=== PATIENT | male | born 1945 | race Caucasian/White ===

== ENCOUNTER → 2017-07-31 10:45 | Outpatient (CLI) | payer MEDICARE, SELFPAY ==
--- NOTE | 2017-07-31 11:00 | RAD_ITS ---
STUDY: X-RAY - ABDOMEN/PELVIS REASON FOR EXAM: Male, 72 years old. Constipation. TECHNIQUE: AP supine and upright views of the abdomen and pelvis. COMPARISON: None. FINDINGS: Normal visualized lung bases. There is a nonspecific bowel gas pattern. There are multiple mildly distended loops of small bowel left upper quadrant. Air and feces is seen throughout the colon. There is no demonstrated free abdominal air. The visualized liver, spleen and kidneys are grossly normal in size and morphology. There are calcified phleboliths in the pelvis. There are diffuse degenerative changes of the visualized lumbar spine. RAD/Abd Inc Decub and/or Erect IMPRESSION: Localized left upper quadrant ileus versus early or incomplete small bowel obstruction. Electronically Signed: Avi Mitchell DO at 12:30 EDT Tel [phone], Service support ,
== END ==
PROVIDERS: Family Provider Family Medicine Geriatric Medicine; PCP Family Medicine Geriatric Medicine; Visit Provider Family Medicine Geriatric Medicine
DX: K59.00 Constipation, unspecified (principal)
CPT/HCPCS: 74019

== ENCOUNTER 2017-09-13 17:50 | Observation (INO) | payer MEDICARE, SELFPAY ==
[2017-09-13] VITALS (7 sets, daily range): BP systolic 146–166; BP diastolic 70–96; PULSE 54–72; RESP 16–20; TEMP 36.5–37.2; O2SAT 97–100; BMI 22.5; BMI 22.1
--- NOTE | 2017-09-13 17:48 | EKG12_ITS ---
Test Reason : CP Blood Pressure : / mmHG Vent. Rate : 055 BPM Atrial Rate : 055 BPM P-R Int : 148 ms QRS Dur : 100 ms QT Int : 420 ms P-R-T Axes : 038 050 117 degrees QTc Int : 401 ms Sinus bradycardia Left ventricular hypertrophy with repolarization abnormality Abnormal ECG Confirmed by TATE BECK, MILA ([id number]), newspaper copy editor REINALDO SHEEHAN ([id number]) on 09/16/2017 3:56:57 PM Referred By: Confirmed By:MILA YBARRA MD
--- NOTE | 2017-09-13 17:50 | RAD_ITS ---
STUDY: X-RAY CHEST REASON FOR EXAM: Male, 72 years old. Chest pain TECHNIQUE: Frontal and lateral views of the chest COMPARISON: None. FINDINGS: The lungs are clear. There are no pleural effusions. There is no pneumothorax. The heart is normal in size. The visualized osseous structures are within normal limits. RAD/Chest PA and Lateral IMPRESSION: No acute thoracic pathology. Electronically Signed: Ron Londono, at 19:05 EDT Tel , Service support ,
--- NOTE | 2017-09-13 17:50 | ED.VISSUMM ---
- ER Visit Summary Date of Service: 09/13/17 Chief Complaint: [] Chest pain History of Present Illness: The patient is a 72 M [] chest pain that started an hour ago after eating. Lasted 15 minutes substernal no radiation was a sharp pain. It went away after that time. EMS gave aspirin only. He was pain-free for them. He is supposed to have a stress test this Thursday as an outpatient as he had chest pain similar a week ago. His last stress test was 2 years ago per patient was normal. He has never had a heart cath. His only cardiac risk factors high cholesterol. No PE or dissection risk factors. Physical Examination: [] Vital signs reviewed General: Well-nourished well-developed Head: Normocephalic atraumatic Eyes: Pupils equal round and reactive to light extraocular movements intact ENT: TMs clear no hemotympanum no trauma Neck: Nontender full range of motion Cardiovascular: Regular rate rhythm no murmurs normal S1-S2 Respiratory: No distress clear to auscultation bilaterally chest nontender Abdomen: Soft nontender nondistended normal bowel sounds no masses Back: Nontender no CVA tenderness Extremities: Nontender active range of motion ?4 extremities no trauma Skin: Normal color no trauma Neuro alert oriented cranial nerves II through XII intact normal strength sensation reflexes Test Results: [] Emergency Department Course and Treatment: [] EKG shows sinus rhythm at 55. ST segment elevation consistent with suspected early repolarization inferiorly 3. ST depression mild 1 and aVL. T-wave inversion 1 and aVL. Biphasic T waves in V4 through V6. These are changed from prior. Lab work and chest x-ray obtained. X-ray shows chronic changes nothing acute. CBC is normal. Chemistries normal except BUN 20. Troponin negative less than 0.01. Patient remained pain-free here. Due to his EKG changes I feel he should be admitted. Discussed with the hospitalist. Treatment Plan: [] Disposition: [] Impression: [] Chest pain with EKG changes This note was generated with [employer] dictation software. It may contain incorrect words, spelling, and punctuation that were not noted in review of the chart prior to signing ED Disposition - Plan for ED Patient: Chief Complaint: Chest Pain Referrals: Som Reyes Chi, MD [Primary Care Provider] -
[2017-09-13 18:19] LABS: Absolute Lymphocyte Count 2.11 X10^3/ul (0.83-4.51); Absolute Neutrophil Count 1.9 X10^3/uL (2.0-7.7); Basophil# 0.04 X10^3/uL; Basophil% 0.7 % (0-1); Eosinophil# 0.68 X10^3/uL; Eosinophils% 12.7 % (0-5); Hematocrit 37.6 % (40-54); Hemoglobin 13.3 g/dl (13.0-16.5); Lymphocyte # 2.11 X10^3/ul (4.0); Lymphocyte % 39.4 % (19-41); Mean Corp Hgb Conc 35.4 g/gl (32-36); Mean Corpuscular Hgb 31.9 pg (27.0-32.0); Mean Corpuscular Volume 90.2 fL (80-94); Mean Platelet Vol. 10.8 fl (6.2-12.0); Monocyte# 0.65 X10^3/uL; Monocyte% 12.1 % (0-10); Neutrophil # 1.87 X10^3/uL (2.7-7.7); Neutrophil % 35.1 % (47-70); Platelet Count 200 K/mm3 (150-450); RBC Distribution Width CV 12.3 % (11.6-14.6); RBC Distribution Width SD 39.8 fl (35.1-43.9); Red Blood Count 4.17 M/mm3 (4.6-6.2); White Blood Count 5.4 K/mm3 (4.4-11.0)
[2017-09-13 18:22] LABS: POSITIVE COUNT NO; POSITIVE DIFFERENTIAL NO; POSITIVE MORPHOLOGY NO
[2017-09-13 18:47] LABS: Anion Gap 7 (5-15); BUN 20 mg/dL (7-18); BUN/Creat Ratio 20.2 RATIO (10-20); Calcium,Total 8.5 mg/dL (8.5-10.1); Chloride 105 mmol/L (98-107); Creatinine, Serum 0.99 mg/dL (0.70-1.30); EST Glomerular Filtration Rate 79 mL/min (>60); Est Glom Filt Rate - Afr Amer 96 mL/min (>60); Estimated Creatinine Clearance 69.94 ml/min; Glucose 98 mg/dL (74-106); Sodium Level 136 mmol/L (136-145)
--- NOTE | 2017-09-13 20:25 | EKG12_ITS ---
Test Reason : ADM EKG Blood Pressure : / mmHG Vent. Rate : 055 BPM Atrial Rate : 055 BPM P-R Int : 144 ms QRS Dur : 104 ms QT Int : 430 ms P-R-T Axes : 046 055 125 degrees QTc Int : 411 ms Sinus bradycardia Left ventricular hypertrophy with repolarization abnormality Abnormal ECG When compared with ECG of 10-FEB-2010 13:52, Vent. rate has decreased BY [address] now depressed in Lateral leads T wave inversion no longer evident in Inferior leads T wave inversion now evident in Lateral leads QT has shortened Confirmed by TATE BECK, MILA ([id number]), editorial specialist REINALDO SHEEHAN ([id number]) on 09/17/2017 10:17:03 AM Referred By: DALE Confirmed By:MILA YBARRA MD
--- NOTE | 2017-09-13 21:02 | PCM.HP.STD ---
Problem List (1) Chest pain Status: Acute (2) Lipidemia Status: Acute (3) HTN (hypertension) Status: Chronic History of Present Illness Date of Admission: 09/13/17 Chief Complaint: Chest pain The patient is a 72 year old male w/ h/o HTN and lipidemia admitted for chest pain. Pt noted that he has epigastric pain an hour after eating. However, the pain moved to this substernal area. It lasted 15 minutes. Nothing made the pain better or worse. Pain lasted 15-20 minutes. Pain was sharp and sudden. Pain was not associated with exertion or any other symptoms. He was supposed to have a stress test this Thursday. He had a stress test 2 years ago and it was normal. Past Medical History Past Medical History (Chronic Problems): Chronic Problems HTN (hypertension) (Chronic) Allergies Penicillins [PCN] Allergy (Verified 01/15/16 08:05) Other Sulfa (Sulfonamide Antibiotics) Allergy (Verified 01/15/16 08:05) Other Home Medications: Ambulatory Orders Medication Instructions Recorded Divalproex Sodium [Divalproex 1,000 mg PO DAILY 01/15/16 Sodium ER] Ergocalciferol [Vitamin D] 50,000 unit PO Q7D 01/15/16 Fluphenazine HCl [Prolixin] 5 mg PO BID 01/15/16 Lorazepam [Ativan] 0.5 mg PO DAILY 01/15/16 Multivit-Min/FA/Lycopen/Lutein 1 each PO DAILY 01/15/16 [Centrum Silver Tablet] Phenytoin Sodium Extended 200 mg PO QHS 01/15/16 [Dilantin] Sennosides/Docusate Sodium 100 mg PO DAILY 01/15/16 [Doc-Q-Lax Tablet] Simvastatin [Zocor] 40 mg PO QHS 01/15/16 Calcium Polycarbophil [Fiber 625 mg PO BID 09/13/17 Laxative] DiphenhydrAMINE [Benadryl] 25 mg PO BID 09/13/17 Surgical History: no surgical history Psychiatric History: No pertinent psych hx Lives: Alone Smoking Status: Never smoker Alcohol: None Drugs: None - *Family History Maternal History Items: No pertinent history Review of Systems Constitutional: Denies: Chills, Fever, Weight Change HEENT: Denies: Head Aches, Sinus Congestion, Sinus Drainage Cardiovascular: Reports: Chest Pain. Denies: Palpitations Respiratory: Denies: Cough, Shortness of breath at rest, Sputum production Gastrointestinal: Denies: Abdominal Pain, Nausea, Vomiting Genitourinary: Denies: Dysuria Musculoskeletal: Denies: Joint Pain, Joint Tenderness Skin: Denies: Rash, Wounds Neurological: Denies: Numbness, Tingling, Focal weakness Psychiatric: Denies: Anxiety, Depression, Homicidal Ideations, Suicidal Ideations Hematologic/ Lymphatic: Denies: Easy Bruising, Easy Bleeding VTE Information - Inpt Only VTE Present on Admission: No VTE Mechan Device Prophylaxis: SCD's VTE Pharm Prophylaxis ordered?: Yes Patient Problems: Active and Suspected Problems Chest pain (Acute) Lipidemia (Acute) - Physical Exam General: Alert, Oriented x3, Cooperative HEENT: Atraumatic, PERRLA, EOMI, Normocephalic Neck: Supple, No JVD, Negative Carotid Bruits Lungs: Clear to auscultation, Normal air movement Cardiovascular: Regular rate, No murmurs Abdomen: Bowel Sounds Present, Soft, Non Tender Extremities: No edema, Capillary Refill Less than 3 Seconds Skin: No rashes, No breakdown Musculoskeletal: No Tenderness to Palpation of Joints or Extremities Neurological: Cranial nerves II-XII grossly intact Psych/Mental Status: Normal Affect, Appropriate Vital Signs Temp Pulse Resp BP Pulse Ox 99 F 64 19 H 166/88 H 97 09/13/17 19:36 09/13/17 19:36 09/13/17 19:36 09/13/17 19:36 09/13/17 18:22 Assessment/Plan All Active Problems Chest pain (Acute) Lipidemia (Acute) 72 year old male w/ h/o HTN and lipidemia admitted for chest pain. 1) Chest pain: Heart score 4 Trops negative. Will get ECHO and stress test. C/w meds. Monitor. 2) Lipidemia: C/w statin. Lipid panel pending. 3) HTN: Resume home meds. Monitor. 4) Prophylaxis: SCD / heparin.
[2017-09-13] MEDS: Carvedilol 3.125 MG TABLET PO (23:02)
[2017-09-13] MEDS: Phenytoin Na 100 MG Capsule 200 MG PO (23:02)
[2017-09-13] MEDS: Atorvastatin Calcium 20 MG Tablet PO (23:02)
[2017-09-13] MEDS: Heparin Injection (Vial) 5,000 UNIT/ML VIAL 5000 UNIT SC (23:02)
[2017-09-13] MEDS: DiphenhydrAMINE 25 MG Capsule PO (23:02)
[2017-09-14 02:53] VITALS: PULSE 49
[2017-09-14 03:15] VITALS: BP 138/65; PULSE 49; RESP 16; TEMP 36.9; O2SAT 96
--- NOTE | 2017-09-14 05:55 | EKG12_ITS ---
Test Reason : AM EKG Blood Pressure : / mmHG Vent. Rate : 050 BPM Atrial Rate : 050 BPM P-R Int : 146 ms QRS Dur : 102 ms QT Int : 460 ms P-R-T Axes : 043 046 129 degrees QTc Int : 419 ms Sinus bradycardia Left ventricular hypertrophy with repolarization abnormality Abnormal ECG When compared with ECG of 13-SEP-2017 20:29, MANUAL COMPARISON REQUIRED, DATA IS UNCONFIRMED Confirmed by TATE BECK, MILA ([id number]), editor greeting card REINALDO SHEEHAN ([id number]) on 09/17/2017 10:15:47 AM Referred By: DR HUNTER Confirmed By:MILA YBARRA MD
[2017-09-14] MEDS: Lisinopril 5 MG Tablet PO (06:37)
[2017-09-14] MEDS: Aspirin E.C. 81 MG Tablet PO (06:37)
[2017-09-14 06:46] LABS: Absolute Lymphocyte Count 1.14 X10^3/ul (0.83-4.51); Absolute Neutrophil Count 2.4 X10^3/uL (2.0-7.7); Basophil# 0.02 X10^3/uL; Basophil% 0.4 % (0-1); Eosinophil# 0.52 X10^3/uL; Eosinophils% 11.5 % (0-5); Hematocrit 38.3 % (40-54); Hemoglobin 13.2 g/dl (13.0-16.5); Lymphocyte # 1.14 X10^3/ul (4.0); Lymphocyte % 25.2 % (19-41); Mean Corp Hgb Conc 34.5 g/gl (32-36); Mean Corpuscular Volume 89.9 fL (80-94); Mean Platelet Vol. 10.5 fl (6.2-12.0); Monocyte# 0.46 X10^3/uL; Monocyte% 10.2 % (0-10); Neutrophil # 2.38 X10^3/uL (2.7-7.7); Neutrophil % 52.7 % (47-70); Platelet Count 193 K/mm3 (150-450); RBC Distribution Width CV 12.8 % (11.6-14.6); RBC Distribution Width SD 41.6 fl (35.1-43.9); Red Blood Count 4.26 M/mm3 (4.6-6.2); White Blood Count 4.5 K/mm3 (4.4-11.0)
[2017-09-14 06:47] LABS: International Normalized Ratio 1.1; Prothrombin Time (Protime)PT. 14.2 SECONDS (11.7-14.9)
[2017-09-14 06:48] LABS: Partial Thromboplast Time 32.6 Seconds (24.1-36.2)
[2017-09-14 06:59] LABS: D-Dimer Quantitative (DVT/PE) < 0.27 FEU/ug/m (0.27-0.49); POSITIVE COUNT NO; POSITIVE DIFFERENTIAL NO; POSITIVE MORPHOLOGY NO
[2017-09-14 07:17] LABS: ALB/GLOB Ratio 0.9 RATIO (0.9-2.4); AST(SGOT) 19 U/L (15-37); Alanine Aminotransfer ALT/SGPT 25 U/L (16-61); Albumin, Serum 3.4 g/dL (3.2-5.0); Alkaline Phosphatase 77 U/L (45-117); Anion Gap 9 (5-15); BUN 16 mg/dL (7-18); BUN/Creat Ratio 18.9 RATIO (10-20); Calcium,Total 8.2 mg/dL (8.5-10.1); Chloride 109 mmol/L (98-107); Cholesterol 178 mg/dL (200); Creatinine, Serum 0.85 mg/dL (0.70-1.30); EST Glomerular Filtration Rate 95 mL/min (>60); Est Glom Filt Rate - Afr Amer 115 mL/min (>60); Estimated Creatinine Clearance 80.07 ml/min; Globulin 3.6 g/dL (2.2-4.2); Glucose 82 mg/dL (74-106); High Density Lipoprotein 58 mg/dL; Potassium 4.2 mmol/L (3.5-5.1); Sodium Level 141 mmol/L (136-145); Thyroid Stim Hormone (TSH) 1.54 uIU/mL (0.358-3.74); Triglycerides 63 mg/dL; Very Low Density Lipoprotein 13 mg/dL (5-40)
[2017-09-14 07:38] VITALS: PULSE 80
[2017-09-14 08:25] LABS: BNP,B-Type NATRIURETIC PEPTIDE 86.3 pg/mL (0-100)
[2017-09-14 09:05] VITALS: BP 163/77; PULSE 58; RESP 16; TEMP 36.4; O2SAT 100
[2017-09-14] MEDS: LORazepam 0.5 MG Tablet PO (09:05)
[2017-09-14 11:12] VITALS: PULSE 55
[2017-09-14] MEDS: Multivitamins,Ther W-Minerals Tablet 1 TABLET PO (11:39)
[2017-09-14] MEDS: Carvedilol 3.125 MG TABLET PO (11:39)
[2017-09-14] MEDS: DiphenhydrAMINE 25 MG Capsule PO (11:39)
[2017-09-14] MEDS: Divalproex (ER) 500 MG Tablet 1000 MG PO (11:39)
[2017-09-14] MEDS: Senna/Docusate Sodium 1 Tablet PO (11:40)
--- NOTE | 2017-09-14 13:15 | STRESSREP ---
Stress Test Report Pharmacologic myocardial perfusion stress test. 72-year-old man with a history of chest pain. Stress protocol: Resting EKG demonstrates sinus rhythm with rate of [address]-T wave changes resting blood pressure is 162/98 mmHg. 0.4 mg regadenoson was infused per usual protocol followed by Intravenous saline flush injection continuous EKG monitoring was performed. The patient maintained sinus rhythm throughout the recording. At rest there were no ST or T-wave changes noted suggest abnormal flow reserve at peak infusion nonspecific ST-T wave changes were noted with no meet the criteria for ischemia. Resting blood pressure is 162/98 with a peak blood pressure 160/100 mmHg. Myocardial perfusion protocol. 11.1 mCi of technetium 99m sestamibi was injected at rest. 0.4 mg regadenoson was infused per usual protocol peak infusion 33.6 mCi of technetium 99m sestamibi was injected stress images are obtained stress and rest images were reconstructed and compared in the short axis vertical long and horizontal long axis. Gated images were also obtained pre- Perfusion SPECT analysis. Review of the stress images demonstrate normal uptake of tracer noted in all areas of the myocardium. The resting images similarly demonstrate normal uptake of tracer noted in all areas of the myocardium. No reversibility is noted suggest ischemia. Gated images could not be obtained. Conclusion: Normal pharmacologic myocardial perfusion stress test. Preserved ejection fraction.
--- NOTE | 2017-09-14 13:58 | PCM.DC ---
- Discharge Diagnoses Current Active Problems: Current Active and Chronic Problems Chest pain, non-cardiac, unclear specific etiology Hypertension, Untreated Hyperlipidemia Unclear Psychiatric History, Suspect Anxiety and Depression/Schizophrenia You will use the following diet at home:: Cardiac Your food should be the consistency of: Regular Your liquids should be the consistency of: Regular/Thin Discharge Activity: Return to Normal Activity, May Not Drive May resume sexual activity in: No Restrictions Weight Bearing Status: Weight bearing as tolerated Call your doctor if you observe: Fever of 101 or Higher, Inability to urinate, Inability to have a bowel movement, Shortness of breath, Dizziness, Fainting spells, Chest pain, Calf discomfort, Uncontrolled pain Instructions: ED Chest Pain NonCardiac, What Is GERD?, Lifestyle Changes for Controlling GERD, Medications for GERD Additional Instructions: Please have follow-up BMP with primary care follow-up given recent start on lisinopril for elevated blood pressure. You have been started on low dose coreg and lisinopril for elevated blood pressures noted upon admission and during admission. Please continue these regimens with close blood pressure monitoring at your facility for possible alteration needs at follow-up with your primary care physician. The chest pain you experienced is not from your heart. The stress test is negative and your heart squeezed normally. The radial arm saw operator you wore showed no problem with the rhythm of your heart. Additionally, the cardiac enzyme series performed remained normal. Sometimes chest pain can come from a problem with the muscles or skeleton and/or associated with straining or doing some strenuous activity you do not normally perform. Generally Aleve or Motrin will help allieviate this discomfort if these medications are appropriate for you to take. Chest pain can also be associated with anxiety and with this you frequently have racing heart, trouble sleeping and irritability. It can also come from gastroesophageal reflux disease or heartburn. People who smoke experience increased heartburn because nicotine decreases the pressure in the lower esophageal sphincter and causes reflux. This type of discomfort is well treated with drinking a large glass of cold water which strips the acid out of the esophagus or taking Mylanta, Maalox or Pepto-Bismol. Other foods to avoid if you have reflux are chocolate, peppermint and calcium containing products such as Tums. Allergies/Adverse Reactions: Allergies Penicillins [PCN] Allergy (Verified 01/15/16 08:05) Other Sulfa (Sulfonamide Antibiotics) Allergy (Verified 01/15/16 08:05) Other Medications to take at Discharge Divalproex Sodium [Divalproex Sodium ER] 1,000 mg PO DAILY 01/15/16 Ergocalciferol [Vitamin D] 50,000 unit PO Q7D 01/15/16 Fluphenazine HCl [Prolixin] 5 mg PO BID 01/15/16 Lorazepam [Ativan] 0.5 mg PO DAILY 01/15/16 Multivit-Min/FA/Lycopen/Lutein [Centrum Silver Tablet] 1 each PO DAILY 01/15/16 Phenytoin Sodium Extended [Dilantin] 200 mg PO QHS 01/15/16 Sennosides/Docusate Sodium [Doc-Q-Lax Tablet] 100 mg PO DAILY 01/15/16 Simvastatin [Zocor] 40 mg PO QHS 01/15/16 Calcium Polycarbophil [Fiber Laxative] 625 mg PO BID 09/13/17 DiphenhydrAMINE [Benadryl] 25 mg PO BID 09/13/17 Carvedilol [Coreg (Beta Jonatan)] 3.125 mg PO BID #60 tab 09/14/17 Famotidine [Pepcid] 20 mg PO BID #60 tab 09/14/17 Lisinopril [Zestril] 5 mg PO DAILY #30 tab 09/14/17 The following prescriptions were given: Lisinopril [Zestril] 5 mg PO DAILY #30 tab Carvedilol [Coreg (Beta Jonatan)] 3.125 mg PO BID #60 tab Famotidine [Pepcid] 20 mg PO BID #60 tab Primary Care Physician: Som Reyes Chi, MD [Primary Care Provider] - Please follow up with your Primary Care Physician in: Follow-up within 3-5 days to review admission. Proposed Discharge Date: 09/14/17
--- NOTE | 2017-09-14 14:09 | DCINST_ITS ---
- Discharge Diagnoses Current Active Problems: Current Active and Chronic Problems Chest pain, non-cardiac, unclear specific etiology Hypertension, Untreated Hyperlipidemia Unclear Psychiatric History, Suspect Anxiety and Depression/Schizophrenia You will use the following diet at home:: Cardiac Your food should be the consistency of: Regular Your liquids should be the consistency of: Regular/Thin Discharge Activity: Return to Normal Activity, May Not Drive May resume sexual activity in: No Restrictions Weight Bearing Status: Weight bearing as tolerated Call your doctor if you observe: Fever of 101 or Higher, Inability to urinate, Inability to have a bowel movement, Shortness of breath, Dizziness, Fainting spells, Chest pain, Calf discomfort, Uncontrolled pain Instructions: ED Chest Pain NonCardiac, What Is GERD?, Lifestyle Changes for Controlling GERD, Medications for GERD Additional Instructions: Please have follow-up BMP with primary care follow-up given recent start on lisinopril for elevated blood pressure. You have been started on low dose coreg and lisinopril for elevated blood pressures noted upon admission and during admission. Please continue these regimens with close blood pressure monitoring at your facility for possible alteration needs at follow-up with your primary care physician. The chest pain you experienced is not from your heart. The stress test is negative and your heart squeezed normally. The desk monitor you wore showed no problem with the rhythm of your heart. Additionally, the cardiac enzyme series performed remained normal. Sometimes chest pain can come from a problem with the muscles or skeleton and/ or associated with straining or doing some strenuous activity you do not normally perform. Generally Aleve or Motrin will help allieviate this discomfort if these medications are appropriate for you to take. Chest pain can also be associated with anxiety and with this you frequently have racing heart, trouble sleeping and irritability. It can also come from gastroesophageal reflux disease or heartburn. People who smoke experience increased heartburn because nicotine decreases the pressure in the lower esophageal sphincter and causes reflux. This type of discomfort is well treated with drinking a large glass of cold water which strips the acid out of the esophagus or taking Mylanta , Maalox or Pepto-Bismol. Other foods to avoid if you have reflux are chocolate , peppermint and calcium containing products such as Tums. Allergies/Adverse Reactions: Allergies Penicillins [PCN] Allergy (Verified 01/15/16 08:05) Other Sulfa (Sulfonamide Antibiotics) Allergy (Verified 01/15/16 08:05) Other Medications to take at Discharge Divalproex Sodium [Divalproex Sodium ER] 1,000 mg PO DAILY 01/15/16 Ergocalciferol [Vitamin D] 50,000 unit PO Q7D 01/15/16 Fluphenazine HCl [Prolixin] 5 mg PO BID 01/15/16 Lorazepam [Ativan] 0.5 mg PO DAILY 01/15/16 Multivit-Min/FA/Lycopen/Lutein [Centrum Silver Tablet] 1 each PO DAILY 01/15/16 Phenytoin Sodium Extended [Dilantin] 200 mg PO QHS 01/15/16 Sennosides/Docusate Sodium [Doc-Q-Lax Tablet] 100 mg PO DAILY 01/15/16 Simvastatin [Zocor] 40 mg PO QHS 01/15/16 Calcium Polycarbophil [Fiber Laxative] 625 mg PO BID 09/13/17 DiphenhydrAMINE [Benadryl] 25 mg PO BID 09/13/17 Carvedilol [Coreg (Beta Jonatan)] 3.125 mg PO BID #60 tab 09/14/17 Famotidine [Pepcid] 20 mg PO BID #60 tab 09/14/17 Lisinopril [Zestril] 5 mg PO DAILY #30 tab 09/14/17 The following prescriptions were given: Lisinopril [Zestril] 5 mg PO DAILY #30 tab Carvedilol [Coreg (Beta Jonatan)] 3.125 mg PO BID #60 tab Famotidine [Pepcid] 20 mg PO BID #60 tab Primary Care Physician: Som Reyes Chi, MD [Primary Care Provider] - Please follow up with your Primary Care Physician in: Follow-up within 3-5 days to review admission. Proposed Discharge Date: 09/14/17
--- NOTE | 2017-09-14 14:11 | CASEMGMT ---
Addendum entered by Rosario Samuels 09/14/17 14:18: SW received a return call from Jake at [facility] and she is sending another upper caser to picker operator patient. They will be here at 330 to picker operator patient. Plan: [facility] Rosario LYLES Original Note: Patient is ready for d/c. SW called [facility] and did not get an answer. REILLY called the individual listed on his face sheet as his legal guardian. The number was for [facility] and she no longer works there. SW left a message for his upper caser, Jake Lovelace. SW also looked on the demographics sheet that [facility] sent with him and there is no on listed as a guardian. Rosario LYLES
--- NOTE | 2017-09-14 14:27 | DS.PCM_ITS ---
Discharge Date and Diagnosis - Problem List Patient Problems: Active and Suspected Problems Chest pain (Acute) Lipidemia (Acute) Date of Admission: 09/13/17 Date of Discharge: 09/14/17 - Primary Discharge Diagnosis Active and Suspected Problems Chest pain, non-cardiac, unclear specific etiology Hypertension, Untreated Hyperlipidemia GERD - Secondary Discharge Diagnosis Chronic Problems Hypertension, Untreated Hyperlipidemia Unclear Psychiatric History, Suspect Anxiety and Depression/Schizophrenia Hospital Course and Treatment Imaging Results: 09/14/17 05:55 Nuclear Stress Test - Chemical [NM] AM (NON MEDS) Operations: None Procedures: EKG, Stress test Summary of Care Provided: The patient is a 72 y/o who lives in a [facility], Poor Historian w/ PMHx: Hypertension, Hyperlipidemia, Unclear Psychiatric History, Suspect Anxiety and Depression/Schizophrenia, GERD who presents to the [facility] ED on 09/13/17 with complaint of the onset of epigastric/chest pain following oral intake ~ 1 hour prior with movement from epigastric to substernal region lasting 15-20 minutes, noted severe in nature and sharp with improvement. In the ED work-up included EKG sinus rhythm without evidence of acute ischemia, CXR without acute process, unremarkable CBC and chemistry, cardiac enzyme set x 1 normal. The patient was admitted to PCU, maintained on cardiac telemetry, serial cardiac enzymes were obtained as well as serial EKGs which remained unremarkable. Patient underwent AM stress testing which was noted to be negative for inducible ischemia. FLP was obtained during admission and not marked aside low HDL with continuation of his home statin. His BP was elevated upon presentation and during admission thus he was initiated on hypertensive regimen. [facility] with recommendation for follow-up with primary care physician within 3-5 days to review admission, review recent HTN regimen additions and have repeat BMP given lisinopril start. Requested penitentiary to continue to monitor blood pressures as further alteration per primary care physician may need to be made. DAY OF DISCHARGE PROGRESS NOTE: Subjective: Patient without acute event overnight per self and nursing report. He denies any further chest discomfort or epigastric pain discomfort. Patient denies fever, chills, nausea, emesis, abdominal pain, recurrent chest pain or dyspnea. Patient agreeable to discharge to [facility]. Patient will be discharged with follow-up with primary care physician within 3-5 days. Objective: T 97.6, HR 55, BP 163/77, RR 16, 100% on RA. Physical Examination: General: awake, alert, oriented to self, place, recent events, flat affect, poor historian for his healthcare, cooperative, seated upright in the bed, NAD. Skin: normal color, turgor, no icterus, cyanosis. HEENT: AT/NC, EOMI, PERRLA, MMM. Lungs: CTA bilaterally, moderate effort, mild decrease BL bases, no rales, ronchi or wheezing; Heart: Regular rate and rhythm; no gallop, rub audible. Abdomen: soft, NTTP, ND, normal BS. Extremities: no cyanosis, clubbing, or edema. Neurological: patient awake, alert, oriented x 3; cognitive function appears intact upon questioning,; pupils equally reactive to light and accomodation; cranial nerves II-XII grossly normal, moving all 4 extremities, strength moderately globally decreased. Psychiatric: affect appears flat, no acute evidence of depressive or anxiety feelings. Assessment and Plan: Please see hospital summary above. Discharge Activity: Return to Normal Activity, May Not Drive May resume sexual activity in: No Restrictions Weight Bearing Status: Weight bearing as tolerated Call your doctor if you observe: Fever of 101 or Higher, Inability to urinate, Inability to have a bowel movement, Shortness of breath, Dizziness, Fainting spells, Chest pain, Calf discomfort, Uncontrolled pain Home Medications: Medications to take at Discharge Divalproex Sodium [Divalproex Sodium ER] 1,000 mg PO DAILY 01/15/16 Ergocalciferol [Vitamin D] 50,000 unit PO Q7D 01/15/16 Fluphenazine HCl [Prolixin] 5 mg PO BID 01/15/16 Lorazepam [Ativan] 0.5 mg PO DAILY 01/15/16 Multivit-Min/FA/Lycopen/Lutein [Centrum Silver Tablet] 1 each PO DAILY 01/15/16 Phenytoin Sodium Extended [Dilantin] 200 mg PO QHS 01/15/16 Sennosides/Docusate Sodium [Doc-Q-Lax Tablet] 100 mg PO DAILY 01/15/16 Simvastatin [Zocor] 40 mg PO QHS 01/15/16 Calcium Polycarbophil [Fiber Laxative] 625 mg PO BID 09/13/17 DiphenhydrAMINE [Benadryl] 25 mg PO BID 09/13/17 Carvedilol [Coreg (Beta Jonatan)] 3.125 mg PO BID #60 tab 09/14/17 Famotidine [Pepcid] 20 mg PO BID #60 tab 09/14/17 Lisinopril [Zestril] 5 mg PO DAILY #30 tab 09/14/17 Following Prescrptions Were Given to Patient: Lisinopril [Zestril] 5 mg PO DAILY #30 tab Carvedilol [Coreg (Beta Jonatan)] 3.125 mg PO BID #60 tab Famotidine [Pepcid] 20 mg PO BID #60 tab Primary Care Physician: Som Reyes Chi, MD [Primary Care Provider] - Please follow up with your Primary Care Physician in: Follow-up within 3-5 days to review admission. Patient Instructions: What Is GERD?, Lifestyle Changes for Controlling GERD, Medications for GERD, ED Chest Pain NonCardiac Medical Necessity - Tobacco Use Smoking Status: Never smoker Meaningful Use Info Meaningful Use Diagnoses (Choose all that apply): None applicable Code Visit OBSV E&M: 66569 Initial observation care L3
[2017-09-14 14:33] VITALS: BP 147/57; PULSE 67; RESP 18; TEMP 36.7; O2SAT 98
== END 2017-09-14 14:12 | disposition home or self-care (01) ==
LOC: ED 18:27 → PCU 19:45
PROVIDERS: Admitting Provider Internal Medicine; Emergency Provider Emergency Medicine; Family Provider Family Medicine Geriatric Medicine; PCP Family Medicine Geriatric Medicine; Visit Provider Family Medicine
DX: R07.89 Other chest pain (principal); E78.5 Hyperlipidemia, unspecified; I10 Essential (primary) hypertension; K21.9 Gastro-esophageal reflux disease without esophagitis; R94.31 Abnormal electrocardiogram [ECG] [EKG]; Z79.899 Other long term (current) drug therapy; G40.909 Epilepsy, unspecified, not intractable, without status epilepticus
CPT/HCPCS: 36415; 71046; 78452; 80048; 80053; 80061; 83880; 84443; 84484; 85025; 85379; 85610; 85730; 93005; 93017; 96372; 97802; 99218; 99285; A9500; J7030; A4216; G0378; J2785

== ENCOUNTER → 2017-11-02 11:21 | Outpatient (CLI) | payer MEDICARE, SELFPAY ==
--- NOTE | 2017-11-02 11:26 | RAD_ITS ---
STUDY: X-RAY - ABDOMEN/PELVIS REASON FOR EXAM: Male, 72 years old. Diarrhea TECHNIQUE: AP supine and upright views of the abdomen and pelvis. COMPARISON: 07/31/2017 FINDINGS: Normal visualized lung bases. There is a nonspecific abdominal bowel gas pattern. There is no demonstrated free abdominal air. The visualized liver, spleen and kidneys are grossly normal in size and morphology. There are calcified phleboliths in the pelvis. Normal visualized osseous structures. RAD/Abd Inc Decub and/or Erect IMPRESSION: Nonspecific abdominal bowel gas pattern. Electronically Signed: Kwan Cook DO at 12:15 EDT Tel , Service support ,
== END ==
PROVIDERS: Family Provider Family Medicine Geriatric Medicine; PCP Family Medicine Geriatric Medicine; Visit Provider Family Medicine Geriatric Medicine
DX: R19.7 Diarrhea, unspecified (principal)
CPT/HCPCS: 74019; 82274; 83630; 87177; 87209; 87493; 87506

== ENCOUNTER 2017-11-26 08:53 | Day surgery (SDC) | payer MEDICARE, SELFPAY ==
[2017-11-26] VITALS (8 sets, daily range): BP systolic 76–126; BP diastolic 46–72; PULSE 46–71; RESP 16–18; TEMP 36.2–36.7; O2SAT 95–99; BMI 23.1
--- NOTE | 2017-11-26 10:00 | COLBX_PTH ---
PATIENT: CLEOPATRA SHAIKH LOC: EN U#:[id number] AGE/SX: 72/M ROOM: RE11/26/[address]: Dr. Raphael Blandon MD : 1945 BED: DIS: 11/26/2017 SPEC #: [id number] RECD: 11/26/17 10:46 STATUS: MEE LINETTE #: [id number] PAWEL: 11/26/17 10:[address]: Raphael Blandon DEPT: SURGICAL PATHOLOGY RECD BY: Guzman Sandoval ENTERED: 11/26/17 10:53 SP TYPE: COLON BX OTHR DR: Dr. Som Reyes MD Tissues: Descending colon Procedures: Surgery Specimen Level IV HEADER OPERATION: Colonoscopy (MAC) PRE-OP DIAGNOSIS: Positive fecal occult blood test TISSUE SUBMITTED: Descending colon polyp MICROSCOPIC DIAGNOSIS Descending colon polyp, biopsy: Fragments of tubular adenoma. Fecal debris. AM:lex 11/27/17 MICROSCOPIC DESCRIPTION Slides are reviewed. GROSS DESCRIPTION Received in fixative is one container labeled with the patient's name and designated descending colon polyp. The specimen consists of multiple irregular fragments of light cleary soft tissue including fecal debris that in aggregate measure 2 x 0.6 x 0.1 cm. The specimen is totally submitted in one cassette. / AM:rg 11/26/17 TC:5 CPT: 55501
--- NOTE | 2017-11-26 11:03 | PCM.OPRPT ---
Problem List (1) Positive fecal occult blood test Status: Acute Report of Operation Date of Procedure: 11/26/17 Pre-Operative Diagnosis: Positive fecal occult blood test Post-Operative Diagnosis: 1. Descending colon polyp. 2. Diverticulosis Surgery/Procedure Performed:: Colonoscopy with snare polypectomy Description of Procedure: The major risks and benefits associated with the procedure were explained to the patient in detail. The patient verbalized understanding and agreement with the same. The patient was brought to the endoscopy suite. After adequate sedation was achieved, the patient was placed in the left lateral decubitus position and a digital rectal exam was performed. This examination was within normal limits. A well-lubricated colonoscope was then inserted into the rectum and advanced under direct visualization to the level of the cecum. The bowel prep was fair. The cecum was identified by both visual and anatomic landmarks. A photograph was taken of the end of the cecum. The scope was then fully withdrawn while examining the color, texture, anatomy and integrity of the mucosa from the cecum to the anal canal. The patient did have a polyp in the descending colon at 60 cm was removed with cautery snare. The findings were consistent with normal colonic mucosa. The patient did have diverticulosis of the sigmoid colon. Over 6 minutes were taken to examine the colonic mucosa. Upon reaching the rectum the scope was retroflexed to examine the distal rectal vault. The scope was then straightened and was completely retrieved upon exiting the anal canal and the procedure was terminated. The patient was then transferred to the recovery room in stable condition. Recommendations for follow up: Depending on pathology
== END 2017-11-26 11:51 | disposition home or self-care (01) ==
LOC: EN 08:54 → AC 08:57
PROVIDERS: Family Provider Family Medicine Geriatric Medicine; PCP Family Medicine Geriatric Medicine; Visit Provider Surgery
PROC: 0DJD8ZZ Inspection of Lower Intestinal Tract, Via Natural or Artificial Opening Endoscopic (ICD-10-PCS; CPT 45378; principal; 2017-11-26 09:55)
DX: D12.4 Benign neoplasm of descending colon (principal); K57.30 Diverticulosis of large intestine without perforation or abscess without bleeding; I10 Essential (primary) hypertension; G40.909 Epilepsy, unspecified, not intractable, without status epilepticus; K21.9 Gastro-esophageal reflux disease without esophagitis; F42.9 Obsessive-compulsive disorder, unspecified; F20.0 Paranoid schizophrenia; E78.00 Pure hypercholesterolemia, unspecified; F41.9 Anxiety disorder, unspecified; F32.9 Major depressive disorder, single episode, unspecified; Z79.899 Other long term (current) drug therapy
CPT/HCPCS: 45380; 88305; J7120

== ENCOUNTER 2017-12-21 18:03 | Emergency (ER) | payer MEDICARE, SELFPAY ==
[2017-12-21 18:04] VITALS: BP 146/78; PULSE 57; RESP 16; TEMP 36.4; O2SAT 100; BMI 21.9
--- NOTE | 2017-12-21 18:20 | EKG12_ITS ---
Test Reason : CP Blood Pressure : / mmHG Vent. Rate : 057 BPM Atrial Rate : 057 BPM P-R Int : 150 ms QRS Dur : 100 ms QT Int : 430 ms P-R-T Axes : 004 057 122 degrees QTc Int : 418 ms Sinus bradycardia Possible Left atrial enlargement Left ventricular hypertrophy with repolarization abnormality Consider right ventricular involvement in acute inferior infarct Abnormal ECG Confirmed by TATE BECK, MILA ([id number]), web content editor REINALDO SHEEHAN ([id number]) on 12/23/2017 9:29:22 AM Referred By: Confirmed By:MILA YBARRA MD
--- NOTE | 2017-12-21 18:26 | RAD_ITS ---
STUDY: X-RAY CHEST REASON FOR EXAM: Male, 72 years old. Chest pain TECHNIQUE: Single AP portable view of the chest. COMPARISON: 09/13/2017. FINDINGS: The lungs are clear and expanded. There is no demonstrated pleural abnormality. Normal size heart. Normal mediastinum and alexia. Normal visualized pulmonary arteries. Normal visualized aortic arch and descending thoracic aorta. There is mild dextroscoliosis of the thoracic spine. Normal visualized ribs, clavicles, and shoulders. There is no demonstrated abnormality of the visualized soft tissue structures of the upper abdomen. RAD/Chest 1 View (Portable) IMPRESSION: No acute chest disease. Electronically Signed: Naveen Robles MD at 18:35 EDT , Service support ,
[2017-12-21 18:53] LABS: Absolute Lymphocyte Count 1.39 X10^3/ul (0.83-4.51); Absolute Neutrophil Count 1.7 X10^3/uL (2.0-7.7); Basophil# 0.06 X10^3/uL; Basophil% 1.4 % (0-1); Eosinophil# 0.64 X10^3/uL; Eosinophils% 14.5 % (0-5); Hematocrit 34.5 % (40-54); Hemoglobin 11.9 g/dl (13.0-16.5); Lymphocyte # 1.39 X10^3/ul (4.0); Lymphocyte % 31.6 % (19-41); Mean Corp Hgb Conc 34.5 g/gl (32-36); Mean Corpuscular Hgb 31.1 pg (27.0-32.0); Mean Corpuscular Volume 90.1 fL (80-94); Mean Platelet Vol. 10.1 fl (6.2-12.0); Monocyte# 0.58 X10^3/uL; Monocyte% 13.2 % (0-10); Neutrophil # 1.73 X10^3/uL (2.7-7.7); Neutrophil % 39.3 % (47-70); POSITIVE COUNT NO; POSITIVE DIFFERENTIAL NO; POSITIVE MORPHOLOGY NO; Platelet Count 220 K/mm3 (150-450); RBC Distribution Width CV 12.9 % (11.6-14.6); RBC Distribution Width SD 42.1 fl (35.1-43.9); Red Blood Count 3.83 M/mm3 (4.6-6.2); White Blood Count 4.4 K/mm3 (4.4-11.0)
--- NOTE | 2017-12-21 19:03 | EKG12_ITS ---
Test Reason : Blood Pressure : / mmHG Vent. Rate : 052 BPM Atrial Rate : 052 BPM P-R Int : 146 ms QRS Dur : 098 ms QT Int : 486 ms P-R-T Axes : 048 052 117 degrees QTc Int : 451 ms Sinus bradycardia Possible Left atrial enlargement Left ventricular hypertrophy with repolarization abnormality ST elevation consider inferior injury or acute infarct Consider right ventricular involvement in acute inferior infarct Abnormal ECG Confirmed by TATE BECK, MILA ([id number]), assignment editor REINALDO SHEEHAN ([id number]) on 12/23/2017 9:29:38 AM Referred By: YUSUF Confirmed By:MILA YBARRA MD
--- NOTE | 2017-12-21 19:06 | ED.DCSUM_ITS ---
- ER Visit Summary Date of Service: 12/21/17 Chief Complaint: Chest pain History of Present Illness: The patient is a 72 M who presents with chest pain that began today. Patient describes the pain as a dull ache. Patient states the pain is over his entire chest. Patient denies any radiation of the pain. Patient denies any shortness of breath. Patient denies any nausea or vomiting. Patient denies any diaphoresis. Physical Examination: Vital signs are stable. Patient is afebrile. Patient is in no acute distress. Oral mucosa is pink and moist. Neck is supple. Trachea is midline. There is no JVD or lymphadenopathy noted. Heart was regular rate and rhythm. Lungs are clear and equal bilaterally. There is good respiratory effort noted. Abdomen is soft nontender. Extremities are intact. There is no calf tenderness or lower extremity edema. Radial and pedal pulses are equal bilaterally. Cranial nerves II through XII are intact. There are no focal motor or sensory deficits noted. Test Results: EKG showed normal sinus rhythm with left ventricular hypertrophy. There is [address] elevation in lead III only. There is no ST elevation in leads II and aVF. This was unchanged compared to previous EKG. A repeat EKG was also obtained and was unchanged. CBC, basic metabolic profile, troponin were obtained were all within normal limits. Emergency Department Course and Treatment: Patient was given aspirin and sublingual nitroglycerin here. Patient felt better on reevaluation. Patient has a DEMARIO risk score of 2. Patient has a HEART score of 3. Patient was advised that this is low risk for acute cardiac event. Patient will be discharged back to his [place] [facility]. Patient was instructed to follow-up with his primary care physician in 7-10 days. Patient and family understood and were agreeable with the plan. All questions were answered. Disposition: Discharged home Impression: Chest pain of uncertain etiology This note was generated with [employer] dictation software. It may contain incorrect words, spelling, and punctuation that were not noted in review of the chart prior to signing ED Disposition - Plan for ED Patient: Disposition: Home or Assisted Living Chief Complaint: Chest Pain Diagnosis: Chest pain of uncertain etiology Instructions: ED Chest Pain Atypical Unkn Cause Referrals: Som Reyes Chi, MD [Primary Care Provider] -
[2017-12-21 19:10] LABS: BUN 30 mg/dL (7-18); Creatinine, Serum 1.32 mg/dL (0.70-1.30); EST Glomerular Filtration Rate 57 mL/min (>60); Estimated Creatinine Clearance 51.12 ml/min; Glucose 93 mg/dL (74-106)
[2017-12-21 19:11] LABS: Anion Gap 7 (5-15); BUN/Creat Ratio 22.7 RATIO (10-20); Calcium,Total 8.3 mg/dL (8.5-10.1); Chloride 102 mmol/L (98-107); Est Glom Filt Rate - Afr Amer 69 mL/min (>60); Potassium 4.5 mmol/L (3.5-5.1); Sodium Level 133 mmol/L (136-145)
[2017-12-21 19:21] VITALS: BP 138/72; PULSE 52; RESP 15; O2SAT 98
--- NOTE | 2017-12-21 21:31 | ED.RN ---
awaiting call back from Alf to discharge pt
[2017-12-21 21:38] VITALS: BP 170/80; PULSE 75; RESP 22; O2SAT 95
== END 2017-12-21 22:01 | disposition home or self-care (01) ==
PROVIDERS: Emergency Provider Emergency Medicine; Family Provider Family Medicine Geriatric Medicine; PCP Family Medicine Geriatric Medicine
DX: R07.9 Chest pain, unspecified (principal); I10 Essential (primary) hypertension; K21.9 Gastro-esophageal reflux disease without esophagitis; R56.9 Unspecified convulsions; F20.9 Schizophrenia, unspecified; F42.9 Obsessive-compulsive disorder, unspecified; Z79.899 Other long term (current) drug therapy
CPT/HCPCS: 36415; 71045; 80048; 84484; 85025; 93005; 99285

== ENCOUNTER → 2018-01-08 11:33 | Outpatient (CLI) | payer MEDICARE, SELFPAY ==
[2018-01-08 12:07] LABS: Absolute Lymphocyte Count 0.83 X10^3/ul (0.83-4.51); Absolute Neutrophil Count 4.3 X10^3/uL (2.0-7.7); Basophil# 0.02 X10^3/uL; Basophil% 0.3 % (0-1); Eosinophil# 0.14 X10^3/uL; Eosinophils% 2.3 % (0-5); Hematocrit 34.6 % (40-54); Hemoglobin 12.6 g/dl (13.0-16.5); Lymphocyte # 0.83 X10^3/ul (4.0); Lymphocyte % 13.6 % (19-41); Mean Corp Hgb Conc 36.4 g/gl (32-36); Mean Corpuscular Hgb 32.2 pg (27.0-32.0); Mean Corpuscular Volume 88.5 fL (80-94); Mean Platelet Vol. 10.8 fl (6.2-12.0); Monocyte% 13.1 % (0-10); Neutrophil # 4.31 X10^3/uL (2.7-7.7); Neutrophil % 70.7 % (47-70); Platelet Count 203 K/mm3 (150-450); RBC Distribution Width CV 11.9 % (11.6-14.6); RBC Distribution Width SD 38.1 fl (35.1-43.9); Red Blood Count 3.91 M/mm3 (4.6-6.2); White Blood Count 6.1 K/mm3 (4.4-11.0)
[2018-01-08 12:08] LABS: POSITIVE COUNT NO; POSITIVE DIFFERENTIAL NO; POSITIVE MORPHOLOGY NO
[2018-01-08 12:19] LABS: Anion Gap 6 (5-15); BUN 22 mg/dL (7-18); Calcium,Total 8.6 mg/dL (8.5-10.1); Chloride 91 mmol/L (98-107); Creatinine, Serum 0.96 mg/dL (0.70-1.30); EST Glomerular Filtration Rate 83 mL/min (>60); Est Glom Filt Rate - Afr Amer 100 mL/min (>60); Glucose 110 mg/dL (74-106); Potassium 4.5 mmol/L (3.5-5.1); Sodium Level 121 mmol/L (136-145)
--- NOTE | 2018-01-08 12:41 | RAD_ITS ---
STUDY: X-RAY - ABDOMEN/PELVIS REASON FOR EXAM: Male, 73 years old. Abdominal pain and distention. Constipation. TECHNIQUE: AP supine and upright views of the abdomen and pelvis. COMPARISON: 11/02/2017. FINDINGS: Normal visualized lung bases. Bowel gas pattern shows several air-fluid levels, and air in large and small bowel to the level of the pelvis. There is marked fecal retention in the rectum. Findings could represent fecal impaction in the rectum. No focal dilated loops of bowel. No free air. The visualized liver, spleen and kidneys are grossly normal in size and morphology. Normal soft tissue structures. Normal visualized osseous structures. RAD/Abd Inc Decub and/or Erect IMPRESSION: Prominent fecal retention. Possible fecal impaction in the rectum. Electronically Signed: Naveen Robles MD at 15:40 EDT , Service support ,
--- NOTE | 2018-01-08 12:41 | RAD_ITS ---
STUDY: X-RAY - PELVIS AND BILATERAL HIPS REASON FOR EXAM: Male, 73 years old. Fall. Hip pain. TECHNIQUE: Radiological exam, hip, bilateral, with pelvis when performed; 3-4 views COMPARISON: None. FINDINGS: Probable fecal retention or impaction in the rectum. Normal bilateral iliac wings, sacroiliac joints and visualized sacrum. Normal bilateral superior and inferior pubic rami. Normal pubic symphysis. Normal bilateral ischial tuberosities. Normal visualized right femoral head. Normal right acetabulum. Normal right hip joint. Normal visualized left femoral head. Normal left acetabulum. Normal left hip joint. RAD/Hips B/L min 2 views w/ Pelvis IMPRESSION: Normal x-ray examination of the pelvis and bilateral hips. Electronically Signed: Naveen Robles MD at 15:43 EDT , Service support ,
== END ==
PROVIDERS: Family Provider Family Medicine Geriatric Medicine; PCP Family Medicine Geriatric Medicine; Visit Provider Family Medicine Geriatric Medicine
DX: F05 Delirium due to known physiological condition (principal)
CPT/HCPCS: 36415; 73521; 74019; 80048; 85025

== ENCOUNTER 2018-01-08 14:19 | Inpatient (IN) | payer MEDICARE, SELFPAY ==
[2018-01-08 14:20] VITALS: BP 154/96; PULSE 82; RESP 18; TEMP 36.6; O2SAT 99; BMI 30.9
--- NOTE | 2018-01-08 16:34 | ED.VISSUMM ---
- ER Visit Summary Date of Service: 01/08/18 Chief Complaint: Sent in by his primary care physician for hyponatremia and constipation. History of Present Illness: The patient is a 73 M history of hypertension and high cholesterol. Patient lives in a shelter. Had outpatient labs today showing a low sodium of 121. KUB showing constipation. Pelvis and hip x-rays were negative. Patient is a limited informant. Physical Examination: Older male. No acute distress. Vital signs are stable. Afebrile. HEENT exam unremarkable. Neck nontender no lymphadenopathy. Lungs clear to auscultation bilaterally. Heart regular rhythm no murmur. Rate about 80. Abdomen soft nontender. Normal bowel sounds. No signs of obstruction. No distention. No hernias or masses. No peritoneal signs. Nontender. Patient is moving all 4 extremities. Calves are nontender without edema. Skin there is no rashes but he is pale. Back is nontender. Neurologically is awake. He does follow commands. He is a limited informant. Test Results: I reviewed his outpatient labs and x-rays from earlier today. Repeat BMP was done in the ER this evening his sodium was 124. Previously it was 121. Gap normal. Creatinine normal. Prior CBC outpatient was unremarkable. Chest x-ray showed no acute abnormality chronic changes read both by myself and the radiologist. Patient had an outpatient KUB which showed increased fecal material consistent with constipation. Also had outpatient hip x-rays which were read as negative. Emergency Department Course and Treatment: Patient treated with 1 L normal saline. Treatment Plan: Due to the hyponatremia. I spoke to the overnight hospitalist Dr. Saba and the patient will be admitted. Disposition: Admission Impression: Acute hyponatremia Acute constipation This note was generated with [employer] dictation software. It may contain incorrect words, spelling, and punctuation that were not noted in review of the chart prior to signing ED Disposition - Plan for ED Patient: Chief Complaint: Abn Labs Referrals: Som Reyes Chi, MD [Primary Care Provider] -
--- NOTE | 2018-01-08 16:35 | RAD_ITS ---
STUDY: X-RAY CHEST REASON FOR EXAM: Male, 73 years old. Constipation. TECHNIQUE: Single AP portable view of the chest. COMPARISON: 12/21/2017. FINDINGS: Moderate lung volumes. Question minimal subsegmental atelectasis in the lung bases. No effusions. There is mild cardiac enlargement. Normal mediastinum and alexia. Normal visualized pulmonary arteries. Normal visualized aortic arch and descending thoracic aorta. Normal visualized thoracic spine. Normal visualized ribs, clavicles, and shoulders. There is no demonstrated abnormality of the visualized soft tissue structures of the upper abdomen. RAD/Chest 1 View (Portable) IMPRESSION: Incomplete expansion of the lungs. Mild subsegmental atelectasis in the lung bases. Electronically Signed: Naveen Robles MD at 16:49 EDT , Service support ,
[2018-01-08 17:29] VITALS: BP 141/81; PULSE 65; RESP 13; O2SAT 99
[2018-01-08] MEDS: 0.9% Normal Saline 1,000 ML 999 ML IV (17:29)
[2018-01-08 17:50] LABS: Anion Gap 7 (5-15); BUN 22 mg/dL (7-18); Calcium,Total 8.5 mg/dL (8.5-10.1); Chloride 92 mmol/L (98-107); Creatinine, Serum 0.96 mg/dL (0.70-1.30); EST Glomerular Filtration Rate 82 mL/min (>60); Est Glom Filt Rate - Afr Amer 100 mL/min (>60); Glucose 86 mg/dL (74-106); Potassium 4.5 mmol/L (3.5-5.1); Sodium Level 124 mmol/L (136-145)
--- NOTE | 2018-01-08 19:32 | HP.PCM_ITS ---
Problem List (1) Hyponatremia Status: Acute (2) Constipation Status: Acute History of Present Illness Date of Admission: 01/08/18 Chief Complaint: constipation, hyponatremia The patient is a 73 year old M who is a resident of a [facility]. He has a history of hypertension hyperlipidemia. He was admitted to the ED on 01/08/2018 after he was since there back his PCP on account of hyponatremia. Patient went to see his PCP today with a complaint of constipation. Labs done showed hyponatremia with sodium of 121. Patient said his only problem was constipation and he also complained of burning with urination. He denied any fever or chills, said he had been eating and drinking well, denied any thyroid problems, any chest pain, any shortness of breath, any palpitations, any diarrhea or vomiting. In the ED, vitals were essentially stable he was saturating at 97% on room air. Labs and history of sodium of 124, with BMP being otherwise WNL. Chest x-ray showed incomplete expansion of lungs with mild subsegmental atelectasis in lung bases. He has been admitted to be managed for acute onset hyponatremia and constipation. [] Past Medical History Past Medical History (Chronic Problems): Chronic Problems (Last Reviewed 11/09/17 @ 10:34 by Tabitha Johnson) HTN (hypertension) (Chronic) Medical History: Medical History (Last Reviewed 11/09/17 @ 10:34 by Tabitha Johnson) Chest pain (Acute) R07.9 Lipidemia (Acute) E78.5 HTN (hypertension) (Chronic) I10 Constipation K59.00 Dysphagia R13.10 Epilepsy G40.909 GERD (gastroesophageal reflux disease) K21.9 Hematest positive stools R19.5 OCD (obsessive compulsive disorder) F42.9 Paranoid schizophrenia F20.0 Allergies Penicillins [PCN] Allergy (Verified 12/21/17 18:13) Other Sulfa (Sulfonamide Antibiotics) Allergy (Verified 12/21/17 18:13) Other Home Medications: Ambulatory Orders Medication Instructions Recorded Ergocalciferol [Vitamin D] 50,000 unit PO Q14D 01/15/16 Fluphenazine HCl [Prolixin] 5 mg PO BID 01/15/16 Multivit-Min/FA/Lycopen/Lutein 1 ea PO DAILY 01/15/16 [Centrum Silver Tablet] Simvastatin [Zocor] 40 mg PO QHS 10/18/16 DiphenhydrAMINE [Benadryl] 25 mg PO BID 09/13/17 Carvedilol [Coreg (Beta Jonatan)] 3.125 mg PO BID #60 tab 09/14/17 Famotidine [Pepcid] 20 mg PO BID #60 tab 09/14/17 Lisinopril [Zestril] 5 mg PO DAILY #30 tab 09/14/17 oxybutynin chloride 5 mg tablet 5 mg PO TID 11/09/17 Divalproex Sodium [Depakote ER] 500 mg PO BID 01/08/18 Lorazepam [Ativan] 0.5 mg PO DAILY 01/08/18 Phenytoin Na [Dilantin] 200 mg PO QHS 01/08/18 Surgical History: Surgical History (Last Reviewed 11/09/17 @ 10:34 by Tabitha Johnson) S/P tonsillectomy (Acute) Z90.89 S/P appendectomy (Acute) Z90.49 Surgical History: no surgical history Psychiatric History: No pertinent psych hx Lives: - - [facility] Smoking Status: Never smoker Alcohol: None Drugs: None - *Family History Maternal Family History: Family History (Last Reviewed 11/09/17 @ 10:35 by Tabitha Johnson) Grandmother Cancer History Items: No pertinent history Review of Systems Constitutional: Denies: Chills, Fever, Malaise, Weakness, Weight Change Eyes: Denies: Blurred vision HEENT: Denies: Head Aches, Sinus Congestion, Sinus Drainage Cardiovascular: Denies: Chest Pain, Palpitations Respiratory: Denies: Cough, Shortness of breath at rest, Sputum production Gastrointestinal: Reports: Abdominal Pain, Constipation. Denies: Nausea, Vomiting Genitourinary: Reports: Dysuria. Denies: Frequency, Hematuria, Hesitancy, Incontinence, Urgency Musculoskeletal: Denies: Joint Pain, Joint Tenderness Skin: Denies: Rash, Wounds Neurological: Denies: Numbness, Tingling, Focal weakness Psychiatric: Denies: Anxiety, Depression, Homicidal Ideations, Suicidal Ideations Hematologic/ Lymphatic: Denies: Easy Bruising, Easy Bleeding VTE Information - Inpt Only VTE Present on Admission: No VTE Mechan Device Prophylaxis: None VTE Pharm Prophylaxis ordered?: Yes Patient Problems: Active and Suspected Problems (Last Reviewed 11/09/17 @ 10:34 by Tabitha Johnson) Hyponatremia (Acute) Constipation (Acute) - Physical Exam General: Alert, Cooperative, No apparent distress HEENT: Atraumatic, PERRLA, EOMI, Normocephalic Oral: Dry Mucosa Neck: Supple, No JVD, Negative Carotid Bruits, Negative Hepatojugular Reflux Lungs: - - mildly diminished breath sounds bibasally, with occasional crackles auscultated Cardiovascular: Regular rate, Regular Rhythm, Normal S1, Normal S2, No murmurs Abdomen: Bowel Sounds Present, Soft, Non Tender, Non-Distended, No Hepato-sp lenomegaly Extremities: No clubbing, No cyanosis, No edema, Capillary Refill Less than 3 Seconds Skin: No rashes, No breakdown Musculoskeletal: No Tenderness to Palpation of Joints or Extremities Lymphatic: No Cervical, Supraclavicular, or Inguinal Adenopathy Neurological: Cranial nerves II-XII grossly intact, Neuro grossly intact, Motor Exam 5/5 strength throughout Psych/Mental Status: Normal Affect, Appropriate Vital Signs Temp Pulse Resp BP Pulse Ox 98 F 65 13 141/81 H 99 01/08/18 14:20 01/08/18 17:29 01/08/18 17:29 01/08/18 17:29 01/08/18 17:29 Oxygen Delivery Method Room Air Weight: 180 lb Body Mass Index (BMI) 30.9 Laboratory Tests Past 24 Hrs 01/08/18 17:27 Sodium 124 L Potassium 4.5 Chloride 92 L Carbon Dioxide 25.0 Anion Gap 7 BUN 22 H Creatinine 0.96 Estim Creat Clear Calc 59.10 Est GFR (MDRD) Af Amer 100 Est GFR (MDRD) Non-Af 82 BUN/Creatinine Ratio 23.0 H Glucose 86 Calcium 8.5 Diagnostic Data Chest X-Ray 01/08/18 16:35 IMPRESSION: Incomplete expansion of the lungs. Mild subsegmental atelectasis in the lung bases. Electronically Signed: Naveen Robles MD at 16:49 EDT , Service support , Assessment/Plan All Active Problems (Last Reviewed 11/09/17 @ 10:34 by Tabitha Johnson) Positive fecal occult blood test (Acute) Hyponatremia (Acute) Constipation (Acute) S/P tonsillectomy (Acute) S/P appendectomy (Acute) Chest pain (Acute) Lipidemia (Acute) 22-year-old male admitted from his [facility] on account of hyponatremia and constipation 1. Acute hyponatremia * Na was 121 in PCP's office, 124 on repeat in ED. usually in 130s. * patient says he has been eating and drinking, but oral mucosa is dry * check serum osmolality, urine osmolality and urine sodium * TSH(09/14/17): 1.54 * lipid panel done in 09/14 was WNL, with TGs of 63, and total cholesterol of 178. Will therefore defer on lipid panel as he has been compliant with his statins in [facility] * check BNP to ensure he doesnt have any underlying heart failure, though he doesnt appear clinically fluid overloaded * start gentle hydration with IV NS, with goal to increase Na by ~ 8 over the next 24 hours. * will check BMP in 4 hours 2. Slow transit constipation * abdomen soft, nontender, though he complains of abdominal pain due to constip ation * soap suds enema * give laxatives- dulcolax and bisacodyl to help with constipation * 3. Possible UTI * complains of dysuria * check UA and consider treating if UA is positive * 4. Hypertension: fairly controlled for age. Continue lisinopril and carvedilol 5. Hyperlipidemia: continue simvastatin 40mg qhs 6. GERD: continue famotidine 7. History of overactive bladder: on ditropan DVT prophylaxis: heparin Code status: full code. * patient counselled about differences between full code, DNRCC and DNRCCA. Patient elects to be full code. Total face to face time 16 mins Code Visit Inpatient E&M: 56199 Init Hosp L3 Procedures: 70718 Advncd Care Plan 30 Min
[2018-01-08 19:35] VITALS: BP 135/72; PULSE 68; RESP 15; O2SAT 97
[2018-01-08 20:47] VITALS: BMI 29.2; BMI 29.3
[2018-01-08 21:36] LABS: Bacteria 0 SEEN /hpf (None Seen); Mucous, Urine 0 SEEN /hpf (<or=2+); White Blood Cells 0 SEEN /hpf (0-5)
[2018-01-08 21:40] LABS: Color, Urine Yellow (Yellow); Glucose, Dipstick Normal (Normal); Ketone-Dipstick Negative (Negative); Leukocyte Esterase-Dipstick Negative /ul (Negative); Nitrite-Dipstick Negative (Negative); Occult Blood-Urine 10 /ul (Negative); Protein-Dipstick 15 mg/dl (Negative); Urine Bilirubin Dipstick Negative (Negative); Urine Clarity Clear (Clear); Urine Urobilinogen Normal (Normal)
[2018-01-08 21:41] LABS: Urine Sodium 21 mmol/L (Not Establ.)
--- NOTE | 2018-01-08 21:47 | NURSING ---
Pt. up to bathroom and unable to urinate. Bladder scan for greater than 253. Pt. anxious and c/o of pain and inability to pee. Straight catherization for 650 CC. Post void residual for 0 CC. Hospitalist paged for further orders if needed.
[2018-01-08 21:49] LABS: Red Blood Cells-Urine 0-5 SEEN /hpf (0-5); Squamous Epithelial Cells - UA 0-5 SEEN /hpf (0-5)
[2018-01-08 22:09] LABS: Anion Gap 9 (5-15); BUN 21 mg/dL (7-18); BUN/Creat Ratio 23.2 RATIO (10-20); Calcium,Total 8.2 mg/dL (8.5-10.1); Chloride 95 mmol/L (98-107); Creatinine, Serum 0.91 mg/dL (0.70-1.30); EST Glomerular Filtration Rate 88 mL/min (>60); Est Glom Filt Rate - Afr Amer 106 mL/min (>60); Estimated Creatinine Clearance 62.34 ml/min; Glucose 111 mg/dL (74-106); Potassium 4.4 mmol/L (3.5-5.1); Sodium Level 126 mmol/L (136-145)
[2018-01-08 22:15] LABS: Osmolality, Serum 260 mOsm/KG (280-301)
[2018-01-08 22:17] LABS: BNP,B-Type NATRIURETIC PEPTIDE 212.5 pg/mL (0-100)
[2018-01-08 22:49] VITALS: PULSE 52
[2018-01-08 22:54] VITALS: BP 141/81; PULSE 58; RESP 16; TEMP 36.5; O2SAT 97
[2018-01-08 23:10] VITALS: PULSE 58
[2018-01-08] MEDS: Atorvastatin Calcium 20 MG Tablet PO (23:25)
[2018-01-08] MEDS: Divalproex (ER) 500 MG Tablet PO (23:25)
[2018-01-08] MEDS: Famotidine 20 MG Tablet PO (23:25)
[2018-01-08] MEDS: DiphenhydrAMINE 25 MG Capsule PO (23:25)
[2018-01-08] MEDS: 0.9% Normal Saline 1,000 ML 200 ML IV (23:26)
[2018-01-08] MEDS: Senna/Docusate Sodium 1 Tablet 2 TABLET PO (23:26)
[2018-01-08] MEDS: Phenytoin Na 100 MG Capsule 200 MG PO (23:26)
[2018-01-09] VITALS (8 sets, daily range): BP systolic 125–145; BP diastolic 63–80; PULSE 46–82; RESP 16–18; TEMP 36.9–37.2; O2SAT 95–99
[2018-01-09 03:08] LABS: Anion Gap 8 (5-15); BUN 21 mg/dL (7-18); BUN/Creat Ratio 22.9 RATIO (10-20); Calcium,Total 7.7 mg/dL (8.5-10.1); Chloride 96 mmol/L (98-107); Creatinine, Serum 0.92 mg/dL (0.70-1.30); EST Glomerular Filtration Rate 87 mL/min (>60); Est Glom Filt Rate - Afr Amer 105 mL/min (>60); Estimated Creatinine Clearance 61.67 ml/min; Glucose 118 mg/dL (74-106); Potassium 4.5 mmol/L (3.5-5.1); Sodium Level 126 mmol/L (136-145)
[2018-01-09 06:33] LABS: Absolute Lymphocyte Count 0.69 X10^3/ul (0.83-4.51); Absolute Neutrophil Count 2.3 X10^3/uL (2.0-7.7); Basophil# 0.02 X10^3/uL; Basophil% 0.5 % (0-1); Eosinophil# 0.28 X10^3/uL; Eosinophils% 6.9 % (0-5); Hematocrit 31.9 % (40-54); Hemoglobin 11.1 g/dl (13.0-16.5); Lymphocyte # 0.69 X10^3/ul (4.0); Lymphocyte % 17.1 % (19-41); Mean Corp Hgb Conc 34.8 g/gl (32-36); Mean Corpuscular Hgb 31.2 pg (27.0-32.0); Mean Corpuscular Volume 89.6 fL (80-94); Mean Platelet Vol. 10.1 fl (6.2-12.0); Monocyte# 0.73 X10^3/uL; Monocyte% 18.1 % (0-10); Neutrophil # 2.31 X10^3/uL (2.7-7.7); Neutrophil % 57.4 % (47-70); Platelet Count 190 K/mm3 (150-450); RBC Distribution Width CV 12.5 % (11.6-14.6); RBC Distribution Width SD 40.7 fl (35.1-43.9); Red Blood Count 3.56 M/mm3 (4.6-6.2)
[2018-01-09 06:35] LABS: POSITIVE COUNT NO; POSITIVE DIFFERENTIAL NO; POSITIVE MORPHOLOGY NO
[2018-01-09 07:12] LABS: Anion Gap 10 (5-15); BUN 21 mg/dL (7-18); BUN/Creat Ratio 23.9 RATIO (10-20); Calcium,Total 7.9 mg/dL (8.5-10.1); Chloride 96 mmol/L (98-107); Creatinine, Serum 0.88 mg/dL (0.70-1.30); EST Glomerular Filtration Rate 91 mL/min (>60); Est Glom Filt Rate - Afr Amer 110 mL/min (>60); Estimated Creatinine Clearance 64.47 ml/min; Glucose 106 mg/dL (74-106); Potassium 4.4 mmol/L (3.5-5.1); Sodium Level 127 mmol/L (136-145)
--- NOTE | 2018-01-09 09:21 | CASEMGMT ---
Social Work Note Face to face with the pt who confirms that he is presently at a detention. Confirms that he has a legal guardian, Jake Duran. Placed call to the number listed which is [facility] ([facility]) and per linux kernel developer Seda is boring machine operator horizontal and she will have her contact this professor of social work. Will await to hear from Seda to confirm that the discharge plan will be for the pt to return to [facility] upon discharge from [facility]. Reny Angel, [employer]ESSIONS DIRECTOR, AUTOMATIC PAINT SPRAYER OPERATOR
[2018-01-09] MEDS: 0.9% Normal Saline 1,000 ML 200 ML IV ×3 (11:48→20:56)
[2018-01-09] MEDS: LORazepam 0.5 MG Tablet PO (11:49)
[2018-01-09] MEDS: Enoxaparin 40 MG/0.4 ML Syringe SC (11:49)
[2018-01-09] MEDS: Multivitamins,Ther W-Minerals Tablet 1 TABLET PO (11:49)
[2018-01-09] MEDS: Divalproex (ER) 500 MG Tablet PO ×2 (11:50→20:57)
[2018-01-09] MEDS: DiphenhydrAMINE 25 MG Capsule PO ×2 (11:50→20:59)
[2018-01-09] MEDS: Lisinopril 5 MG Tablet PO (11:51)
[2018-01-09] MEDS: Famotidine 20 MG Tablet PO ×2 (11:51→20:59)
[2018-01-09] MEDS: Senna/Docusate Sodium 1 Tablet 2 TABLET PO ×2 (11:51→20:58)
[2018-01-09] MEDS: Carvedilol 3.125 MG TABLET PO ×2 (11:52→20:57)
--- NOTE | 2018-01-09 12:07 | PCM.PN.HOSP ---
Patient Problems: Active and Suspected Problems (Last Reviewed 11/09/17 @ 10:34 by Tabitha Johnson) Hyponatremia (Acute) Constipation (Acute) Subjective: Patient was seen and examined. Patient has moved his bowels once yesterday, small. Denies nausea and vomiting. Vitals/I&O's: Vital Signs Temp Pulse Resp BP Pulse Ox 98.5 F 62 18 132/80 H 99 01/09/18 04:45 01/09/18 04:45 01/09/18 04:45 01/09/18 04:45 01/09/18 04:45 Oxygen Delivery Method Room Air Weight: 77.3 kg Body Mass Index (BMI) 29.2 Intake and Output for Last 24 Hours 01/07/18 01/08/18 01/09/18 23:59 23:59 23:59 Intake Total 1586 / 1586 Output Total 1200 / 1200 Balance 386 / 386 General: Alert, Oriented x3, Cooperative, No apparent distress HEENT: Atraumatic, PERRLA, EOMI, Normocephalic Oral: Moist Mucosa Neck: Supple, No JVD, Negative Carotid Bruits Lungs: Clear to auscultation, Normal air movement Cardiovascular: Regular rate, Regular Rhythm, Normal S1, Normal S2, No murmurs Abdomen: Bowel Sounds Present, Soft, Non Tender, Non-Distended, No Hepato-splenomegaly Extremities: No edema Skin: No rashes, No breakdown Musculoskeletal: No Tenderness to Palpation of Joints or Extremities Lymphatic: No Cervical, Supraclavicular, or Inguinal Adenopathy Neurological: Cranial nerves II-XII grossly intact, Neuro grossly intact Psych/Mental Status: Appropriate, Flat Affect Laboratory Results 01/08/18 17:27: Sodium 124 L, Potassium 4.5, Chloride 92 L, Carbon Dioxide 25.0, Anion Gap 7, BUN 22 H, Creatinine 0.96, Estim Creat Clear Calc 59.10, Est GFR (MDRD) Af Amer 100, Est GFR (MDRD) Non-Af 82, BUN/Creatinine Ratio 23.0 H, Glucose 86, Calcium 8.5 01/08/18 21:30: Urine Color Yellow, Urine Clarity Clear, Urine pH 6.0, Ur Specific [place] 1.010, Urine Protein 15 H, Urine Glucose (UA) Normal, Urine Ketones Negative, Urine Occult Blood 10 H, Urine Nitrite Negative, Urine Bilirubin Negative, Urine Urobilinogen Normal, Ur Leukocyte Esterase Negative, Urine RBC 0-5 SEEN, Urine WBC 0 SEEN, Ur Squamous Epith Cells 0-5 SEEN, Urine Bacteria 0 SEEN, Urine Mucus 0 SEEN 01/08/18 21:30: Ur Random Sodium 21 01/08/18 21:39: B-Natriuretic Peptide 212.5 H 01/08/18 21:39: Serum Osmolality 260 L 01/08/18 21:39: Sodium 126 L, Potassium 4.4, Chloride 95 L, Carbon Dioxide 22.0, Anion Gap 9, BUN 21 H, Creatinine 0.91, Estim Creat Clear Calc 62.34, Est GFR (MDRD) Af Amer 106, Est GFR (MDRD) Non-Af 88, BUN/Creatinine Ratio 23.2 H, Glucose 111 H, Calcium 8.2 L 01/09/18 02:00: Sodium 126 L, Potassium 4.5, Chloride 96 L, Carbon Dioxide 22.0, Anion Gap 8, BUN 21 H, Creatinine 0.92, Estim Creat Clear Calc 61.67, Est GFR (MDRD) Af Amer 105, Est GFR (MDRD) Non-Af 87, BUN/Creatinine Ratio 22.9 H, Glucose 118 H, Calcium 7.7 L 01/09/18 06:22: WBC 4.0 L, RBC 3.56 L, Hgb 11.1 L, Hct 31.9 L, MCV 89.6, MCH 31.2, MCHC 34.8, RDW 12.5, RDW Differential 40.7, Plt Count 190, MPV 10.1, Immature Gran % (Auto) 0.000, Neut % (Auto) 57.4, Lymph % (Auto) 17.1 L, [place] % (Auto) 18.1 H, Eos % (Auto) 6.9 H, Baso % (Auto) 0.5, Absolute Neuts (auto) 2.3, Absolute Lymphs (auto) 0.69 L, Total Counted Not Reportable 01/09/18 06:22: Sodium 127 L, Potassium 4.4, Chloride 96 L, Carbon Dioxide 21.0, Anion Gap 10, BUN 21 H, Creatinine 0.88, Estim Creat Clear Calc 64.47, Est GFR (MDRD) Af Amer 110, Est GFR (MDRD) Non-Af 91, BUN/Creatinine Ratio 23.9 H, Glucose 106, Calcium 7.9 L Current Medications Atorvastatin Calcium (Lipitor) 20 mg PO QHS [facility] Last Admin: 01/08/18 23:25 Dose: 20 mg Carvedilol (Coreg) 3.125 mg PO BID [facility] Last Admin: 01/09/18 11:52 Dose: 3.125 mg Diphenhydramine HCl (Benadryl) 25 mg PO BID [facility] Last Admin: 01/09/18 11:50 Dose: 25 mg Divalproex Sodium (Depakote Er) 500 mg PO BID [facility] Last Admin: 01/09/18 11:50 Dose: 500 mg Enoxaparin Sodium (Lovenox) 40 mg SC DAILY@1000 [facility] Last Admin: 01/09/18 11:49 Dose: 40 mg Ergocalciferol (Vitamin D) 50,000 unit PO Q14D [facility] Famotidine (Pepcid) 20 mg PO BID [facility] Last Admin: 01/09/18 11:51 Dose: 20 mg Fluphenazine HCl (Prolixin) 5 mg PO BID [facility] Sodium Chloride () 1,000 mls @ 200 mls/hr IV .Q5H [facility] Last Admin: 01/09/18 11:48 Dose: 200 mls/hr Lisinopril (Zestril) 5 mg PO DAILY [facility] Last Admin: 01/09/18 11:51 Dose: 5 mg Lorazepam (Ativan) 0.5 mg PO DAILY [facility] Last Admin: 01/09/18 11:49 Dose: 0.5 mg Magnesium Hydroxide (Milk Of Magnesia) 30 ml PO DAILY PRN PRN PRN Reason: Constipation Multivitamins/Minerals (Multivitamin With Minerals) 1 tablet PO DAILY@0800 [facility] Last Admin: 01/09/18 11:49 Dose: 1 tablet Phenytoin Sodium (Dilantin) 200 mg PO QHS [facility] Last Admin: 01/08/18 23:26 Dose: 200 mg Senna/Docusate Sodium (Senokot-S, Amanda-Colace) 2 tablet PO BID [facility] Last Admin: 01/09/18 11:51 Dose: 2 tablet Sodium Chloride () 5 - 30 ml IV UD PRN PRN Reason: SALINE FLUSH Medical Necessity - Tobacco Use Smoking Status: Never smoker Assessment/Plan All Active Problems (Last Reviewed 08/13/18 @ 10:34 by Tabitha Johnson) Positive fecal occult blood test (Acute) Hyponatremia (Acute) Constipation (Acute) S/P tonsillectomy (Acute) S/P appendectomy (Acute) Chest pain (Acute) Lipidemia (Acute) 73-year-old male with past medical history of schizoaffective disorder, hypertension, hyperlipidemia, resident in a [facility] admitted to the hospital with hyponatremia and constipation. 1. Acute hypotonic hyponatremia, likely secondary to dehydration , serum osmolarity is 260, urine sodium is 21, sodium is improving with IV fluids, currently 127 from 124, continue on IV fluids, continue to trend BMP 2. Constipation, slow transit, on multiple stool softeners, will continue to monitor 3. Dysuria, UA not suggestive of UTI 4. Hypertension, controlled, continue on carvedilol, continue to monitor vitals 5. Hyperlipidemia, on statin 6. GERD, on famotidine 7. History of overactive bladder, on ditropan 8. His affective disorder, on fluphenazine 9. DVT Ppx- Lovenox SC Code Visit Inpatient E&M: 45909 Subs Hosp L2
--- NOTE | 2018-01-09 12:35 | PN_ITS ---
Patient Problems: Active and Suspected Problems (Last Reviewed 11/09/17 @ 10:34 by Tabitha Johnson) Hyponatremia (Acute) Constipation (Acute) Subjective: Patient was seen and examined. Patient has moved his bowels once yesterday, small. Denies nausea and vomiting. Vitals/I&O's: Vital Signs Temp Pulse Resp BP Pulse Ox 98.5 F 62 18 132/80 H 99 01/09/18 04:45 01/09/18 04:45 01/09/18 04:45 01/09/18 04:45 01/09/18 04:45 Oxygen Delivery Method Room Air Weight: 77.3 kg Body Mass Index (BMI) 29.2 Intake and Output for Last 24 Hours 01/07/18 01/08/18 01/09/18 23:59 23:59 23:59 Intake Total 1586 / 1586 Output Total 1200 / 1200 Balance 386 / 386 General: Alert, Oriented x3, Cooperative, No apparent distress HEENT: Atraumatic, PERRLA, EOMI, Normocephalic Oral: Moist Mucosa Neck: Supple, No JVD, Negative Carotid Bruits Lungs: Clear to auscultation, Normal air movement Cardiovascular: Regular rate, Regular Rhythm, Normal S1, Normal S2, No murmurs Abdomen: Bowel Sounds Present, Soft, Non Tender, Non-Distended, No Hepato- splenomegaly Extremities: No edema Skin: No rashes, No breakdown Musculoskeletal: No Tenderness to Palpation of Joints or Extremities Lymphatic: No Cervical, Supraclavicular, or Inguinal Adenopathy Neurological: Cranial nerves II-XII grossly intact, Neuro grossly intact Psych/Mental Status: Appropriate, Flat Affect Laboratory Results 01/08/18 17:27: Sodium 124 L, Potassium 4.5, Chloride 92 L, Carbon Dioxide 25.0, Anion Gap 7, BUN 22 H, Creatinine 0.96, Estim Creat Clear Calc 59.10, Est GFR (MDRD) Af Amer 100, Est GFR (MDRD) Non-Af 82, BUN/Creatinine Ratio 23.0 H, Glucose 86, Calcium 8.5 01/08/18 21:30: Urine Color Yellow, Urine Clarity Clear, Urine pH 6.0, Ur Specific [place] 1.010, Urine Protein 15 H, Urine Glucose (UA) Normal, Urine Ketones Negative, Urine Occult Blood 10 H, Urine Nitrite Negative, Urine Bilirubin Negative, Urine Urobilinogen Normal, Ur Leukocyte Esterase Negative, Urine RBC 0-5 SEEN, Urine WBC 0 SEEN, Ur Squamous Epith Cells 0-5 SEEN, Urine Bacteria 0 SEEN, Urine Mucus 0 SEEN 01/08/18 21:30: Ur Random Sodium 21 01/08/18 21:39: B-Natriuretic Peptide 212.5 H 01/08/18 21:39: Serum Osmolality 260 L 01/08/18 21:39: Sodium 126 L, Potassium 4.4, Chloride 95 L, Carbon Dioxide 22.0, Anion Gap 9, BUN 21 H, Creatinine 0.91, Estim Creat Clear Calc 62.34, Est GFR (MDRD) Af Amer 106, Est GFR (MDRD) Non-Af 88, BUN/Creatinine Ratio 23.2 H, Glucose 111 H, Calcium 8.2 L 01/09/18 02:00: Sodium 126 L, Potassium 4.5, Chloride 96 L, Carbon Dioxide 22.0, Anion Gap 8, BUN 21 H, Creatinine 0.92, Estim Creat Clear Calc 61.67, Est GFR (MDRD) Af Amer 105, Est GFR (MDRD) Non-Af 87, BUN/Creatinine Ratio 22.9 H, Glucose 118 H, Calcium 7.7 L 01/09/18 06:22: WBC 4.0 L, RBC 3.56 L, Hgb 11.1 L, Hct 31.9 L, MCV 89.6, MCH 31.2, MCHC 34.8, RDW 12.5, RDW Differential 40.7, Plt Count 190, MPV 10.1, Immature Gran % (Auto) 0.000, Neut % (Auto) 57.4, Lymph % (Auto) 17.1 L, [place] % (Auto) 18.1 H, Eos % (Auto) 6.9 H, Baso % (Auto) 0.5, Absolute Neuts (auto) 2.3, Absolute Lymphs (auto) 0.69 L, Total Counted Not Reportable 01/09/18 06:22: Sodium 127 L, Potassium 4.4, Chloride 96 L, Carbon Dioxide 21.0, Anion Gap 10, BUN 21 H, Creatinine 0.88, Estim Creat Clear Calc 64.47, Est GFR (MDRD) Af Amer 110, Est GFR (MDRD) Non-Af 91, BUN/Creatinine Ratio 23.9 H, Glucose 106, Calcium 7.9 L Current Medications Atorvastatin Calcium (Lipitor) 20 mg PO QHS [facility] Last Admin: 01/08/18 23:25 Dose: 20 mg Carvedilol (Coreg) 3.125 mg PO BID [facility] Last Admin: 01/09/18 11:52 Dose: 3.125 mg Diphenhydramine HCl (Benadryl) 25 mg PO BID [facility] Last Admin: 01/09/18 11:50 Dose: 25 mg Divalproex Sodium (Depakote Er) 500 mg PO BID [facility] Last Admin: 01/09/18 11:50 Dose: 500 mg Enoxaparin Sodium (Lovenox) 40 mg SC DAILY@1000 [facility] Last Admin: 01/09/18 11:49 Dose: 40 mg Ergocalciferol (Vitamin D) 50,000 unit PO Q14D [facility] Famotidine (Pepcid) 20 mg PO BID [facility] Last Admin: 01/09/18 11:51 Dose: 20 mg Fluphenazine HCl (Prolixin) 5 mg PO BID [facility] Sodium Chloride () 1,000 mls @ 200 mls/hr IV .Q5H [facility] Last Admin: 01/09/18 11:48 Dose: 200 mls/hr Lisinopril (Zestril) 5 mg PO DAILY [facility] Last Admin: 01/09/18 11:51 Dose: 5 mg Lorazepam (Ativan) 0.5 mg PO DAILY [facility] Last Admin: 01/09/18 11:49 Dose: 0.5 mg Magnesium Hydroxide (Milk Of Magnesia) 30 ml PO DAILY PRN PRN PRN Reason: Constipation Multivitamins/Minerals (Multivitamin With Minerals) 1 tablet PO DAILY@0800 [facility] Last Admin: 01/09/18 11:49 Dose: 1 tablet Phenytoin Sodium (Dilantin) 200 mg PO QHS [facility] Last Admin: 01/08/18 23:26 Dose: 200 mg Senna/Docusate Sodium (Senokot-S, Amanda-Colace) 2 tablet PO BID [facility] Last Admin: 01/09/18 11:51 Dose: 2 tablet Sodium Chloride () 5 - 30 ml IV UD PRN PRN Reason: SALINE FLUSH Medical Necessity - Tobacco Use Smoking Status: Never smoker Assessment/Plan All Active Problems (Last Reviewed 08/13/18 @ 10:34 by Tabitha Johnson) Positive fecal occult blood test (Acute) Hyponatremia (Acute) Constipation (Acute) S/P tonsillectomy (Acute) S/P appendectomy (Acute) Chest pain (Acute) Lipidemia (Acute) 73-year-old male with past medical history of schizoaffective disorder, hypertension, hyperlipidemia, resident in a skilled nursing admitted to the hospital with hyponatremia and constipation. 1. Acute hypotonic hyponatremia, likely secondary to dehydration , serum osmolarity is 260, urine sodium is 21, sodium is improving with IV fluids, currently 127 from 124, continue on IV fluids, continue to trend BMP 2. Constipation, slow transit, on multiple stool softeners, will continue to monitor 3. Dysuria, UA not suggestive of UTI 4. Hypertension, controlled, continue on carvedilol, continue to monitor vitals 5. Hyperlipidemia, on statin 6. GERD, on famotidine 7. History of overactive bladder, on ditropan 8. His affective disorder, on fluphenazine 9. DVT Ppx- Lovenox SC Code Visit Inpatient E&M: 25488 Subs Hosp L2
[2018-01-09 18:20] LABS: Osmolality, Urine 144 mOsm/KG
[2018-01-09] MEDS: Phenytoin Na 100 MG Capsule 200 MG PO (20:58)
[2018-01-09] MEDS: Atorvastatin Calcium 20 MG Tablet PO (20:59)
[2018-01-10] VITALS (56 sets, daily range): BP systolic 71–163; BP diastolic 39–103; PULSE 45–102; RESP 9–28; TEMP 35.7–37.1; O2SAT 85–100
[2018-01-10] MEDS: 0.9% Normal Saline 1,000 ML 200 ML IV ×2 (01:53→06:59)
[2018-01-10 05:48] LABS: Absolute Lymphocyte Count 0.83 X10^3/ul (0.83-4.51); Absolute Neutrophil Count 4.1 X10^3/uL (2.0-7.7); Basophil# 0.02 X10^3/uL; Basophil% 0.3 % (0-1); Eosinophil# 0.22 X10^3/uL; Eosinophils% 3.7 % (0-5); Lymphocyte # 0.83 X10^3/ul (4.0); Lymphocyte % 14.1 % (19-41); Mean Corp Hgb Conc 34.5 g/gl (32-36); Mean Corpuscular Hgb 31.5 pg (27.0-32.0); Mean Corpuscular Volume 91.5 fL (80-94); Mean Platelet Vol. 11.2 fl (6.2-12.0); Monocyte# 0.74 X10^3/uL; Monocyte% 12.5 % (0-10); Neutrophil # 4.08 X10^3/uL (2.7-7.7); Neutrophil % 69.2 % (47-70); Platelet Count 154 K/mm3 (150-450); RBC Distribution Width CV 12.4 % (11.6-14.6); RBC Distribution Width SD 40.2 fl (35.1-43.9); Red Blood Count 3.17 M/mm3 (4.6-6.2); White Blood Count 5.9 K/mm3 (4.4-11.0)
[2018-01-10 06:07] LABS: Anion Gap 10 (5-15); BUN 13 mg/dL (7-18); BUN/Creat Ratio 16.7 RATIO (10-20); Calcium,Total 7.6 mg/dL (8.5-10.1); Chloride 104 mmol/L (98-107); Creatinine, Serum 0.78 mg/dL (0.70-1.30); EST Glomerular Filtration Rate 105 mL/min (>60); Est Glom Filt Rate - Afr Amer 127 mL/min (>60); Estimated Creatinine Clearance 56.73 ml/min; Glucose 86 mg/dL (74-106); Sodium Level 135 mmol/L (136-145)
[2018-01-10 06:08] LABS: POSITIVE COUNT NO; POSITIVE DIFFERENTIAL NO; POSITIVE MORPHOLOGY NO
[2018-01-10] MEDS: DiphenhydrAMINE 25 MG Capsule PO (08:16)
[2018-01-10] MEDS: Multivitamins,Ther W-Minerals Tablet 1 TABLET PO (08:16)
[2018-01-10] MEDS: Famotidine 20 MG Tablet PO (08:17)
[2018-01-10] MEDS: Carvedilol 3.125 MG TABLET PO (08:17)
[2018-01-10] MEDS: Lisinopril 5 MG Tablet PO (08:17)
[2018-01-10] MEDS: Divalproex (ER) 500 MG Tablet PO (08:17)
[2018-01-10] MEDS: Enoxaparin 40 MG/0.4 ML Syringe SC (08:17)
[2018-01-10] MEDS: LORazepam 0.5 MG Tablet PO (08:19)
--- NOTE | 2018-01-10 09:02 | DCINST_ITS ---
- Discharge Diagnoses Current Active Problems: Current Active and Chronic Problems (Last Reviewed 11/09/17 @ 10:34 by Tabitha Johnson) Hyponatremia (Acute) Constipation (Acute) Reason(s) for Visit for Discharge Instructions: Constipation, weakness You will use the following diet at home:: Regular Your food should be the consistency of: Regular Your liquids should be the consistency of: Regular/Thin Discharge Activity: Return to Normal Activity Additional Instructions: Continue to hydrate yourself with lots of fluids. You are being discharged with some stool softners to use for constipation. You need to follow-up with your primary care doctor in 1 week for repeat blood work. Allergies/Adverse Reactions: Allergies Penicillins [PCN] Allergy (Verified 12/21/17 18:13) Other Sulfa (Sulfonamide Antibiotics) Allergy (Verified 12/21/17 18:13) Other Medications to take at Discharge Ergocalciferol [Vitamin D] 50,000 unit PO Q14D 01/15/16 Fluphenazine HCl [Prolixin] 5 mg PO BID 01/15/16 Multivit-Min/FA/Lycopen/Lutein [Centrum Silver Tablet] 1 ea PO DAILY 01/15/16 Simvastatin [Zocor] 40 mg PO QHS 01/15/16 DiphenhydrAMINE [Benadryl] 25 mg PO BID 09/13/17 Carvedilol [Coreg (Beta Jonatan)] 3.125 mg PO BID #60 tab 09/14/17 Famotidine [Pepcid] 20 mg PO BID #60 tab 09/14/17 Lisinopril [Zestril] 5 mg PO DAILY #30 tab 09/14/17 oxybutynin chloride 5 mg tablet 5 mg PO TID 11/09/17 Divalproex Sodium [Depakote ER] 500 mg PO BID 01/08/18 Lorazepam [Ativan] 0.5 mg PO DAILY 01/08/18 Phenytoin Na [Dilantin] 200 mg PO QHS 01/08/18 Senna/Docusate Sodium [Senokot-S] 2 tablet PO BID PRN #60 tablet 01/10/18 The following prescriptions were given: Senna/Docusate Sodium [Senokot-S] 2 tablet PO BID PRN #60 tablet PRN Reason: Constipation Orders to be completed after discharge: Basic Metabolic Profile (BMP) Location: Laboratory Primary Care Physician: Som Reyes Chi, MD [Primary Care Provider] - Please follow up with your Primary Care Physician in: within 1 week Test Results: Test results from this visit will be discussed in further detail at your follow- up appointment, if applicable. Proposed Discharge Date: 01/10/18
--- NOTE | 2018-01-10 09:25 | PCM.DC.SUM ---
Discharge Date and Diagnosis - Problem List Patient Problems: Active and Suspected Problems (Last Reviewed 11/09/17 @ 10:34 by Tabitha Johnson) Hyponatremia (Acute) Constipation (Acute) Date of Admission: 01/08/18 Date of Discharge: 01/10/18 - Primary Discharge Diagnosis Active and Suspected Problems (Last Reviewed 11/09/17 @ 10:34 by Tabitha Johnson) Hyponatremia (Acute) Constipation (Acute) - Secondary Discharge Diagnosis Chronic Problems (Last Reviewed 11/09/17 @ 10:34 by Tabitha Johnson) HTN (hypertension) (Chronic) Hospital Course and Treatment Operations: None Summary of Care Provided: The patient is a 73 year old M [] Patient Problems: Active and Suspected Problems (Last Reviewed 11/09/17 @ 10:34 by Tabitha Johnson) Hyponatremia (Acute) Constipation (Acute) - Physical Exam Vital Signs Temp Pulse Resp BP Pulse Ox 98.8 F 102 H 20 H 163/71 H 96 01/10/18 08:05 01/10/18 08:05 01/10/18 08:05 01/10/18 08:05 01/10/18 08:05 Oxygen Delivery Method Room Air Weight: 77.3 kg Body Mass Index (BMI) 29.2 Intake and Output for Last 24 Hours 01/08/18 01/09/18 01/10/18 23:59 23:59 23:59 Intake Total 5055 / 5055 1066 / 1066 Output Total 3950 / 3950 550 / 550 Balance 1105 / 1105 516 / 516 Laboratory Tests Past 24 Hrs 01/09/18 01/10/18 01/10/18 15:40 05:20 05:20 WBC 5.9 RBC 3.17 L Hgb 10.0 L Hct 29.0 L MCV 91.5 MCH 31.5 MCHC 34.5 RDW 12.4 RDW Differential 40.2 Plt Count 154 MPV 11.2 Immature Gran % (Auto) 0.200 Neut % (Auto) 69.2 Lymph % (Auto) 14.1 L [place] % (Auto) 12.5 H Eos % (Auto) 3.7 Baso % (Auto) 0.3 Absolute Neuts (auto) 4.1 Absolute Lymphs (auto) 0.83 Total Counted Not Reportable Sodium 135 L Potassium 4.0 Chloride 104 Carbon Dioxide 21.0 Anion Gap 10 BUN 13 Creatinine 0.78 Estim Creat Clear Calc 56.73 Est GFR (MDRD) Af Amer 127 Est GFR (MDRD) Non-Af 105 BUN/Creatinine Ratio 16.7 Glucose 86 Calcium 7.6 L Urine Osmolality 144 Discharge Activity: Return to Normal Activity Home Medications: Medications to take at Discharge Ergocalciferol [Vitamin D] 50,000 unit PO Q14D 01/15/16 Fluphenazine HCl [Prolixin] 5 mg PO BID 01/15/16 Multivit-Min/FA/Lycopen/Lutein [Centrum Silver Tablet] 1 ea PO DAILY 01/15/16 Simvastatin [Zocor] 40 mg PO QHS 01/15/16 DiphenhydrAMINE [Benadryl] 25 mg PO BID 09/13/17 Carvedilol [Coreg (Beta Jonatan)] 3.125 mg PO BID #60 tab 09/14/17 Famotidine [Pepcid] 20 mg PO BID #60 tab 09/14/17 Lisinopril [Zestril] 5 mg PO DAILY #30 tab 09/14/17 oxybutynin chloride 5 mg tablet 5 mg PO TID 11/09/17 Divalproex Sodium [Depakote ER] 500 mg PO BID 01/08/18 Lorazepam [Ativan] 0.5 mg PO DAILY 01/08/18 Phenytoin Na [Dilantin] 200 mg PO QHS 01/08/18 Senna/Docusate Sodium [Senokot-S] 2 tablet PO BID PRN #60 tablet 01/10/18 Following Prescrptions Were Given to Patient: Senna/Docusate Sodium [Senokot-S] 2 tablet PO BID PRN #60 tablet PRN Reason: Constipation Other Amb Orders: Basic Metabolic Profile (BMP) Location: Laboratory Primary Care Physician: Som Reyes Chi, MD [Primary Care Provider] - Please follow up with your Primary Care Physician in: within 1 week Medical Necessity - Tobacco Use Smoking Status: Never smoker
--- NOTE | 2018-01-10 09:39 | NURSING ---
Spoke with Jake from [facility], patient cannot go back to the senior care until tomorrow 01/11, and cannot return if he requires a schafer catheter. Dr. Sunshine ng.
--- NOTE | 2018-01-10 11:39 | PCM.PN.HOSP ---
Patient Problems: Active and Suspected Problems (Last Reviewed 11/09/17 @ 10:34 by Tabitha Johnson) Hyponatremia (Acute) Constipation (Acute) Subjective: Patient seen and examined. He has had 3 bowel movements. He denies any fever, chills, SOB. Objective: Physical exam: General: Alert, Oriented x3, Cooperative, No apparent distress HEENT: Atraumatic, PERRLA, EOMI, Normocephalic Oral: Moist Mucosa Neck: Supple, No JVD, Negative Carotid Bruits Lungs: Clear to auscultation, Normal air movement Cardiovascular: Regular rate, Regular Rhythm, Normal S1, Normal S2, No murmurs Abdomen: Bowel Sounds Present, Soft, Non Tender, Non-Distended, No Hepato-splenomegaly Extremities: No edema Skin: No rashes, No breakdown Musculoskeletal: No Tenderness to Palpation of Joints or Extremities Lymphatic: No Cervical, Supraclavicular, or Inguinal Adenopathy Neurological: Cranial nerves II-XII grossly intact, Neuro grossly intact Psych/Mental Status: Appropriate, Flat Affect Vitals/I&O's: Vital Signs Temp Pulse Resp BP Pulse Ox 98.8 F 102 H 20 H 163/71 H 96 01/10/18 08:05 01/10/18 08:05 01/10/18 08:05 01/10/18 08:05 01/10/18 08:05 Oxygen Delivery Method Room Air Weight: 77.3 kg Body Mass Index (BMI) 29.2 Intake and Output for Last 24 Hours 01/08/18 01/09/18 01/10/18 23:59 23:59 23:59 Intake Total 5055 / 5055 1466 / 1466 Output Total 3950 / 3950 1050 / 1050 Balance 1105 / 1105 416 / 416 Laboratory Results 01/09/18 15:40: Urine Osmolality 144 01/10/18 05:20: WBC 5.9, RBC 3.17 L, Hgb 10.0 L, Hct 29.0 L, MCV 91.5, MCH 31.5, MCHC 34.5, RDW 12.4, RDW Differential 40.2, Plt Count 154, MPV 11.2, Immature Gran % (Auto) 0.200, Neut % (Auto) 69.2, Lymph % (Auto) 14.1 L, [place] % (Auto) 12.5 H, Eos % (Auto) 3.7, Baso % (Auto) 0.3, Absolute Neuts (auto) 4.1, Absolute Lymphs (auto) 0.83, Total Counted Not Reportable 01/10/18 05:20: Sodium 135 L, Potassium 4.0, Chloride 104, Carbon Dioxide 21.0, Anion Gap 10, BUN 13, Creatinine 0.78, Estim Creat Clear Calc 56.73, Est GFR (MDRD) Af Amer 127, Est GFR (MDRD) Non-Af 105, BUN/Creatinine Ratio 16.7, Glucose 86, Calcium 7.6 L Current Medications Atorvastatin Calcium (Lipitor) 20 mg PO QHS [facility] Last Admin: 01/09/18 20:59 Dose: 20 mg Bisacodyl (Dulcolax) 10 mg PO DAILY [facility] Last Admin: 01/10/18 08:16 Dose: Not Given Carvedilol (Coreg) 3.125 mg PO BID [facility] Last Admin: 01/10/18 08:17 Dose: 3.1249 mg Diphenhydramine HCl (Benadryl) 25 mg PO BID [facility] Last Admin: 01/10/18 08:16 Dose: 25 mg Divalproex Sodium (Depakote Er) 500 mg PO BID [facility] Last Admin: 01/10/18 08:17 Dose: 500 mg Enoxaparin Sodium (Lovenox) 40 mg SC DAILY@1000 [facility] Last Admin: 01/10/18 08:17 Dose: 40 mg Ergocalciferol (Vitamin D) 50,000 unit PO Q14D [facility] Famotidine (Pepcid) 20 mg PO BID [facility] Last Admin: 01/10/18 08:17 Dose: 20 mg Fluphenazine HCl (Prolixin) 5 mg PO BID [facility] Lisinopril (Zestril) 5 mg PO DAILY [facility] Last Admin: 01/10/18 08:17 Dose: 5 mg Lorazepam (Ativan) 0.5 mg PO DAILY [facility] Last Admin: 01/10/18 08:19 Dose: 0.5 mg Magnesium Hydroxide (Milk Of Magnesia) 30 ml PO DAILY PRN PRN PRN Reason: Constipation Multivitamins/Minerals (Multivitamin With Minerals) 1 tablet PO DAILY@0800 [facility] Last Admin: 01/10/18 08:16 Dose: 1 tablet Phenytoin Sodium (Dilantin) 200 mg PO QHS [facility] Last Admin: 01/09/18 20:58 Dose: 200 mg Senna/Docusate Sodium (Senokot-S, Amanda-Colace) 2 tablet PO BID [facility] Last Admin: 01/10/18 08:17 Dose: Not Given Sodium Chloride () 5 - 30 ml IV UD PRN PRN Reason: SALINE FLUSH Medical Necessity - Tobacco Use Smoking Status: Never smoker Assessment/Plan All Active Problems (Last Reviewed 11/09/17 @ 10:34 by Tabitha Johnson) Positive fecal occult blood test (Acute) Hyponatremia (Acute) Constipation (Acute) S/P tonsillectomy (Acute) S/P appendectomy (Acute) Chest pain (Acute) Lipidemia (Acute) 73-year-old male with past medical history of schizoaffective disorder, hypertension, hyperlipidemia, resident in a assisted admitted to the hospital with hyponatremia and constipation. 1. Acute hypotonic hyponatremia, likely secondary to dehydration, resolved 2. Constipation, slow transit, on multiple stool softeners, resolved. 3. Dysuria, UA not suggestive of UTI 4. Hypertension, controlled, continue on carvedilol, continue to monitor vitals 5. Hyperlipidemia, on statin 6. GERD, on famotidine 7. History of overactive bladder, on ditropan 8. His affective disorder, on fluphenazine 9. DVT Ppx- Lovenox SC 10. Disposition: Possible dc to group Code Visit Inpatient E&M: 07499 Subs Hosp L2
--- NOTE | 2018-01-10 11:57 | PN_ITS ---
Patient Problems: Active and Suspected Problems (Last Reviewed 11/09/17 @ 10:34 by Tabitha Johnson) Hyponatremia (Acute) Constipation (Acute) Subjective: Patient seen and examined. He has had 3 bowel movements. He denies any fever, chills, SOB. Objective: Physical exam: General: Alert, Oriented x3, Cooperative, No apparent distress HEENT: Atraumatic, PERRLA, EOMI, Normocephalic Oral: Moist Mucosa Neck: Supple, No JVD, Negative Carotid Bruits Lungs: Clear to auscultation, Normal air movement Cardiovascular: Regular rate, Regular Rhythm, Normal S1, Normal S2, No murmurs Abdomen: Bowel Sounds Present, Soft, Non Tender, Non-Distended, No Hepato- splenomegaly Extremities: No edema Skin: No rashes, No breakdown Musculoskeletal: No Tenderness to Palpation of Joints or Extremities Lymphatic: No Cervical, Supraclavicular, or Inguinal Adenopathy Neurological: Cranial nerves II-XII grossly intact, Neuro grossly intact Psych/Mental Status: Appropriate, Flat Affect Vitals/I&O's: Vital Signs Temp Pulse Resp BP Pulse Ox 98.8 F 102 H 20 H 163/71 H 96 01/10/18 08:05 01/10/18 08:05 01/10/18 08:05 01/10/18 08:05 01/10/18 08:05 Oxygen Delivery Method Room Air Weight: 77.3 kg Body Mass Index (BMI) 29.2 Intake and Output for Last 24 Hours 01/08/18 01/09/18 01/10/18 23:59 23:59 23:59 Intake Total 5055 / 5055 1466 / 1466 Output Total 3950 / 3950 1050 / 1050 Balance 1105 / 1105 416 / 416 Laboratory Results 01/09/18 15:40: Urine Osmolality 144 01/10/18 05:20: WBC 5.9, RBC 3.17 L, Hgb 10.0 L, Hct 29.0 L, MCV 91.5, MCH 31.5, MCHC 34.5, RDW 12.4, RDW Differential 40.2, Plt Count 154, MPV 11.2, Immature Gran % (Auto) 0.200, Neut % (Auto) 69.2, Lymph % (Auto) 14.1 L, [place] % (Auto) 12.5 H, Eos % (Auto) 3.7, Baso % (Auto) 0.3, Absolute Neuts (auto) 4.1, Absolute Lymphs (auto) 0.83, Total Counted Not Reportable 01/10/18 05:20: Sodium 135 L, Potassium 4.0, Chloride 104, Carbon Dioxide 21.0, Anion Gap 10, BUN 13, Creatinine 0.78, Estim Creat Clear Calc 56.73, Est GFR (MDRD) Af Amer 127, Est GFR (MDRD) Non-Af 105, BUN/Creatinine Ratio 16.7, Glucose 86, Calcium 7.6 L Current Medications Atorvastatin Calcium (Lipitor) 20 mg PO QHS [facility] Last Admin: 01/09/18 20:59 Dose: 20 mg Bisacodyl (Dulcolax) 10 mg PO DAILY [facility] Last Admin: 01/10/18 08:16 Dose: Not Given Carvedilol (Coreg) 3.125 mg PO BID [facility] Last Admin: 01/10/18 08:17 Dose: 3.1249 mg Diphenhydramine HCl (Benadryl) 25 mg PO BID [facility] Last Admin: 01/10/18 08:16 Dose: 25 mg Divalproex Sodium (Depakote Er) 500 mg PO BID [facility] Last Admin: 01/10/18 08:17 Dose: 500 mg Enoxaparin Sodium (Lovenox) 40 mg SC DAILY@1000 [facility] Last Admin: 01/10/18 08:17 Dose: 40 mg Ergocalciferol (Vitamin D) 50,000 unit PO Q14D [facility] Famotidine (Pepcid) 20 mg PO BID [facility] Last Admin: 01/10/18 08:17 Dose: 20 mg Fluphenazine HCl (Prolixin) 5 mg PO BID [facility] Lisinopril (Zestril) 5 mg PO DAILY [facility] Last Admin: 01/10/18 08:17 Dose: 5 mg Lorazepam (Ativan) 0.5 mg PO DAILY [facility] Last Admin: 01/10/18 08:19 Dose: 0.5 mg Magnesium Hydroxide (Milk Of Magnesia) 30 ml PO DAILY PRN PRN PRN Reason: Constipation Multivitamins/Minerals (Multivitamin With Minerals) 1 tablet PO DAILY@0800 [facility] Last Admin: 01/10/18 08:16 Dose: 1 tablet Phenytoin Sodium (Dilantin) 200 mg PO QHS [facility] Last Admin: 01/09/18 20:58 Dose: 200 mg Senna/Docusate Sodium (Senokot-S, Amanda-Colace) 2 tablet PO BID [facility] Last Admin: 01/10/18 08:17 Dose: Not Given Sodium Chloride () 5 - 30 ml IV UD PRN PRN Reason: SALINE FLUSH Medical Necessity - Tobacco Use Smoking Status: Never smoker Assessment/Plan All Active Problems (Last Reviewed 11/09/17 @ 10:34 by Tabitha Johnson) Positive fecal occult blood test (Acute) Hyponatremia (Acute) Constipation (Acute) S/P tonsillectomy (Acute) S/P appendectomy (Acute) Chest pain (Acute) Lipidemia (Acute) 73-year-old male with past medical history of schizoaffective disorder, hypertension, hyperlipidemia, resident in a retirement admitted to the hospital with hyponatremia and constipation. 1. Acute hypotonic hyponatremia, likely secondary to dehydration, resolved 2. Constipation, slow transit, on multiple stool softeners, resolved. 3. Dysuria, UA not suggestive of UTI 4. Hypertension, controlled, continue on carvedilol, continue to monitor vitals 5. Hyperlipidemia, on statin 6. GERD, on famotidine 7. History of overactive bladder, on ditropan 8. His affective disorder, on fluphenazine 9. DVT Ppx- Lovenox SC 10. Disposition: Possible dc to group Code Visit Inpatient E&M: 58342 Subs Hosp L2
--- NOTE | 2018-01-10 13:08 | NURSING ---
Tele alarm ringing maurisio on monitor. Upon entering room patient looked pale and patient was unresponsive. Weak pulse was felt on carotid artery. [employer] OPERATOR was called. Patient had agonal breathing noted. Code blue called moments later when a pulse was no longer detected. Chest compressions were initiated. See paper code documentation sheet for series of events.
[2018-01-10 13:25] LABS: Bedside Glucose 103 mg/dL (70-110)
--- NOTE | 2018-01-10 13:46 | EKG12_ITS ---
Test Reason : CODE BLUE Blood Pressure : / mmHG Vent. Rate : 063 BPM Atrial Rate : 063 BPM P-R Int : 150 ms QRS Dur : 102 ms QT Int : 424 ms P-R-T Axes : 057 083 209 degrees QTc Int : 433 ms Normal sinus rhythm Left ventricular hypertrophy Nonspecific ST and T wave abnormality Confirmed by DOLLY BECK, GALLITO ([id number]), newspaper or periodical editor REINALDO SHEEHAN ([id number]) on 01/14/2018 12:02:06 PM Referred By: Kari Saba Confirmed By:GALLITO ALBERTO MD
[2018-01-10 14:01] LABS: Allen Test POS; Base Excess -14 mmol/L (-2 to +2); Bicarbonate 17.1 mmol/L (22-26); Blood Gas Specimen Type ART; FI02 100; Mode A-C; O2 Delivery Device Vent; PEEP 5; PO2 92 mmHG (75-100); RR 14; SITE L Radial; SO2 91 % (95-99); Time Given 1340; Total Carbon Dioxide 19 mmol/L; Vt 500; pCO2 65.8 mmHg (35-45); pH 7.02 (7.35-7.45)
[2018-01-10] MEDS: Propofol 10MG/Ml 1,000 MG/100 ML Bottle 2.319 MG CONT INF (14:10)
[2018-01-10] MEDS: Midazolam 2 MG/2 ML Syringe IV (14:15)
[2018-01-10 14:19] LABS: Absolute Lymphocyte Count 1.17 X10^3/ul (0.83-4.51); Absolute Neutrophil Count 3.9 X10^3/uL (2.0-7.7); Basophil# 0.02 X10^3/uL; Basophil% 0.3 % (0-1); Eosinophil# 0.14 X10^3/uL; Eosinophils% 2.4 % (0-5); Hematocrit 32.4 % (40-54); Hemoglobin 10.8 g/dl (13.0-16.5); Lymphocyte # 1.17 X10^3/ul (4.0); Mean Corp Hgb Conc 33.3 g/gl (32-36); Mean Corpuscular Hgb 31.4 pg (27.0-32.0); Mean Corpuscular Volume 94.2 fL (80-94); Mean Platelet Vol. 10.7 fl (6.2-12.0); Monocyte# 0.63 X10^3/uL; Monocyte% 10.8 % (0-10); Neutrophil # 3.88 X10^3/uL (2.7-7.7); Neutrophil % 66.2 % (47-70); POSITIVE COUNT NO; POSITIVE DIFFERENTIAL NO; POSITIVE MORPHOLOGY NO; Platelet Count 183 K/mm3 (150-450); RBC Distribution Width CV 12.7 % (11.6-14.6); RBC Distribution Width SD 43.8 fl (35.1-43.9); Red Blood Count 3.44 M/mm3 (4.6-6.2); White Blood Count 5.9 K/mm3 (4.4-11.0)
[2018-01-10 14:34] LABS: ALB/GLOB Ratio 0.8 RATIO (0.9-2.4); AST(SGOT) 240 U/L (15-37); Alanine Aminotransfer ALT/SGPT 201 U/L (16-61); Albumin, Serum 2.5 g/dL (3.2-5.0); Alkaline Phosphatase 124 U/L (45-117); Anion Gap 11 (5-15); BUN 12 mg/dL (7-18); BUN/Creat Ratio 9.7 RATIO (10-20); Calcium,Total 7.1 mg/dL (8.5-10.1); Chloride 105 mmol/L (98-107); Creatinine, Serum 1.24 mg/dL (0.70-1.30); EST Glomerular Filtration Rate 61 mL/min (>60); Est Glom Filt Rate - Afr Amer 74 mL/min (>60); Estimated Creatinine Clearance 45.75 ml/min; Globulin 3.3 g/dL (2.2-4.2); Glucose 110 mg/dL (74-106); Potassium 3.9 mmol/L (3.5-5.1); Protein, Total 5.8 g/dL (6.4-8.2); Sodium Level 136 mmol/L (136-145)
[2018-01-10] MEDS: fentaNYL drip 100 ML 2.5 MCG IV (14:45)
[2018-01-10 14:46] LABS: CPK Total, Creatine Kinase 142 U/L (39-308); Triglycerides 40 mg/dL
--- NOTE | 2018-01-10 14:51 | CT_ITS ---
STUDY: CTA CHEST REASON FOR EXAM: Male, 73 years old. CODE BLUE TODAY HAVING SEIZURE ACTIVITY AFTER INTUBATION HYPOXIC RADIATION DOSAGE (If Supplied By Facility): CTDIvol = ( 22.47 ) mGy, DLP = ( 1721.54 ) mGycm TECHNIQUE: The examination was performed with the intravenous administration of 100CC ml of Isovue 370 contrast material. Post-processing of the angiographic images was performed, with multiplanar reformation and 3D reconstruction. Individualized dose optimization techniques were used for this CT. COMPARISON: None. FINDINGS: There are degenerative changes of the shoulders. There is no pneumothorax. There is diffuse interlobular septal thickening. Small bilateral pleural effusions. Diffuse bilateral infiltrates. There is borderline cardiomegaly. Normal mediastinum. Normal hilar regions. Normal pulmonary arteries. There is atherosclerotic calcification of the aortic arch with tortuosity and elongation of the aortic arch and descending thoracic aorta. There are multi-level degenerative changes of the thoracic spine. ET tube and NG tube in place. Old appearing compression deformity of the upper thoracic spine. There is no demonstrated abnormality of the visualized upper abdomen. CT/CTA Chest W/WO Contrast IMPRESSION: There are bilateral pleural effusions, interlobular septal thickening, and cardiomegaly. This can suggest pulmonary edema. Diffuse bilateral pneumonia. No demonstrated pulmonary embolism or arterial dissection. Electronically Signed: Earl Lemus MD at 19:05 EDT , Service support ,
--- NOTE | 2018-01-10 14:52 | CT_ITS ---
STUDY: CTA OF THE BRAIN REASON FOR EXAM: Male, 73 years old. CODE BLUE TODAY HAVING SEIZURE ACTIVITY AFTER INTUBATION HYPOXIC RADIATION DOSAGE (If Supplied By Facility): CTDIvol = ( 22.47 ) mGy, DLP = ( 1721.54 ) mGycm TECHNIQUE: CT angiography was performed with a multi-detector CT scanner. Data acquisition was obtained from the skull base through the vertex following intravenous administration of 100 ml of Isovue-370. MIP images were reconstructed from the axial data set. Post-processing of the angiographic images was performed, with multiplanar reformation and 3D reconstruction. Individualized dose optimization techniques were used for this CT. COMPARISON: 02.13.10 FINDINGS: Normal bilateral petrous carotid arteries. Normal right cavernous carotid artery with a normal supraclinoid bifurcation. Normal left cavernous carotid artery with a normal supraclinoid bifurcation. Normal right A1 segments of the anterior cerebral artery. There is hypoplastic development of the left A1 segment of the anterior cerebral arteries with an atretic but intact artery. Normal intact anterior communicating artery (ACOM). Normal bilateral A2 segments of the anterior cerebral arteries. Normal right M1 and M2 segments of the middle cerebral arteries, with a normal M1 bifurcation. Normal left M1 and M2 segments of the middle cerebral arteries, with a normal M1 bifurcation. There is non-visualization of the right posterior communicating artery (PCOM). Normal left posterior communicating artery (PCOM). Normal bilateral vertebral arteries. Normal basilar artery with a normal basilar bifurcation. The visualized bilateral superior cerebellar (SCA) arteries are normal. Normal bilateral P1, P2 and visualized P3 segments of the posterior cerebral arteries. There is no demonstrated aneurysm of the [place]. There is mild cerebral atrophy with widening of the extra-axial spaces and ventricular dilatation. Normal white matter tracts of the supratentorial brain. Normal basal ganglia, and thalami. CT/CTA Head W/WO Contrast IMPRESSION: There is hypoplastic development of the left A1 segment of the anterior cerebral arteries with an atretic but intact artery. No evidence for critical stenosis. Electronically Signed: Earl Lemus MD at 19:02 EDT , Service support ,
--- NOTE | 2018-01-10 14:52 | RAD_ITS ---
STUDY: X-RAY CHEST REASON FOR EXAM: Male, 73 years old. Tube placement. TECHNIQUE: Single AP portable view of the chest. COMPARISON: January 08, 2018 FINDINGS: Endotracheal tube, 3 cm above the michelle. Feeding tube extends to the stomach in the left upper quadrant. Central catheter on the right extends to the lower superior vena cava. There is right mid and lower lung airspace opacification. There is no demonstrated pleural abnormality. Normal size heart. Normal mediastinum and alexia. Normal visualized pulmonary arteries. Normal visualized aortic arch and descending thoracic aorta. Normal visualized thoracic spine. Normal visualized ribs, clavicles, and shoulders. There is no demonstrated abnormality of the visualized soft tissue structures of the upper abdomen. RAD/CXR for Line Placement IMPRESSION: Endotracheal tube, nasogastric catheter, and feeding tube placement. Right lung infiltrate. Electronically Signed: Angelito Burns MD at 16:18 EDT , Service support ,
[2018-01-10] MEDS: LORazepam 2 MG/ML Syringe IV ×4 (14:55→17:43)
[2018-01-10] MEDS: 0.9% NaCl Peripheral Flush Adult/Peds IV ×2 (15:32→16:02)
--- NOTE | 2018-01-10 15:35 | PCM.CODE.B ---
Code Blue Summary Rapid response was called for patient who was noted to be bradycardic momentarily on telemetry. He was found to be unresponsive with a weak pulse. He subsequently lost his pulse and a CODE BLUE was called. Patient was found to have PEA. Received CPR, rounds of epinephrine. He was intubated eventually with the use of glidoscope after the initial difficulty visualizing the larynx using the laryngoscope. Initial difficulty was due to lots of secretions. Patient later had spontaneous return of circulation, initial rhythm looked like SVT/sinus tachycardia. An Interosseous tibial access was placed by Dr. Flowers. He was transferred to the ICU, blood pressure was found to be 87 systolic. Patient underwent ultrasound-guided central line placement. His right IJ appears smaller than his left. There was difficulty advancing the guidewire in the right IJ suggestive of IJ possible clots. After a couple more tries, patient received subclavian central access placement. Checks x-ray showed no pneumothorax; official report pending. EKG shows normal sinus rhythm, T wave inversions in V4 to V6, troponin slightly elevated at 0.174. BMP shows improved sodium of 136, bicarbonate of 20. EEG shows pH of 7.05, PCO2 was 60.8, PO2 was 98, this was done was patient was in the ICU intubated and on mechanical ventilation. While being situated in the ICU, patient was noted to be having a tonic-clonic seizures more in the right upper and lower extremities. A/P: Unresponsiveness/cardiac arrest/PEA Symptomatic bradycardia Possible PE Seizure episodes Will trend cardiac enzymes -likely to be elevated in the light of CPR Cardiology, critical care consult CTA of the chest, CT of the brain IV propofol, fentanyl, Levophed, Veronica catheter OG tube Continue with ICU protocol Ativan prn for seizures Phenytoin level Discussed With Dr. Castro and Dr. Dinh Skinner Discussed with his HCPOA, sister, Nancy Merlos - [phone], who is in [place]. His sister would like us to discuss all care with nephew in law, Thien Garrett [phone]. Both sister and nephew were updated. Verified CODE STATUS which is full code
[2018-01-10] MEDS: 0.9% Normal Saline 1,000 ML 150 ML IV (15:40)
[2018-01-10 15:57] LABS: Phenytoin (Dilantin) Level 4.2 mL (10.0-20.0)
--- NOTE | 2018-01-10 15:59 | PCM.OP.BLANK ---
Problem List (1) Cardiac arrest Status: Acute Operative Report Date of Procedure: 01/10/18 Intraosseous line during CODE BLUE and then right central venous catheter insertion. Initially, [facility] was called for cardiopulmonary arrest. Right medial tibial plateau was sterilized. Intraosseous needle was inserted with the help of motorized intraosseous gun. Normal saline IV bolus was started and Emergency code blue medications were given. Code note as per Attending, , Dr. Gandara. Right central venous catheter insertion. Right and left side of neck both was sterilized and draped with aseptic technique. With ultrasound, right jugular vein was visualized but it seemed smaller than normal size and thought probably because of hypovolemia. In Trendelenburg position, right jugular vein was accessed and thick dark blood was aspirated. The guidewire was advanced but soon felt to be resistance and guidewire was removed. Left-sided jugular vein was visualized with ultrasound and seemed right IJ is almost half of left-sided IJ. It seems most probably patient has a right IJ venous thromboembolism. Then right subclavian vein was accessed with Seldinger technique without difficulty and venous blood flow confirmed. The guidewire was advanced without difficulty and resistance. Triple-lumen catheter was passed under guidewire without difficulty. Triple-lumen catheter was secured. This was relayed and discussed to Dr. Gandara. Pencil further discussed with the director information Dr. Skinner. Chest x-ray was done and right subclavian CVC was confirmed in good position at of vena cava junction. No pneumothorax. Furthermore, care as per Dr. Gandara. ultrasound service was tried for venous Doppler of jugular veins but they are not available afternoon. Detail progess note and further care and management as per Attending, Dr. Gandara. Code Visit Procedures: 70830 Insert Non-tunnel CV Cath
--- NOTE | 2018-01-10 16:02 | OP.PCM_ITS ---
Problem List (1) Cardiac arrest Status: Acute Operative Report Date of Procedure: 01/10/18 Intraosseous line during CODE BLUE and then right central venous catheter insertion. Initially, [facility] was called for cardiopulmonary arrest. Right medial tibial plateau was sterilized. Intraosseous needle was inserted with the help of motorized intraosseous gun. Normal saline IV bolus was started and Emergency code blue medications were given. Code note as per Attending, , Dr. Gandara. Right central venous catheter insertion. Right and left side of neck both was sterilized and draped with aseptic technique. With ultrasound, right jugular vein was visualized but it seemed smaller than normal size and thought probably because of hypovolemia. In Trendelenburg position, right jugular vein was accessed and thick dark blood was aspirated. The guidewire was advanced but soon felt to be resistance and guidewire was removed. Left-sided jugular vein was visualized with ultrasound and seemed right IJ is almost half of left-sided IJ. It seems most probably patient has a right IJ venous thromboembolism. Then right subclavian vein was accessed with Seldinger technique without difficulty and venous blood flow confirmed. The guidewire was advanced without difficulty and resistance. Triple-lumen catheter was passed under guidewire without difficulty. Triple-lumen catheter was secured. This was relayed and discussed to Dr. Gandara. Pencil further discussed with the prize fighter Dr. Skinner. Chest x-ray was done and right subclavian CVC was confirmed in good position at of vena cava junction. No pneumothorax. Furthermore, care as per Dr. Gandara. ultrasound service was tried for venous Doppler of jugular veins but they are not available afternoon. Detail progess note and further care and management as per Attending, Dr. Gandara. Code Visit Procedures: 68624 Insert Non-tunnel CV Cath
[2018-01-10 16:23] LABS: International Normalized Ratio 1.3; Prothrombin Time (Protime)PT. 16.6 SECONDS (11.7-14.9)
[2018-01-10 16:24] LABS: Partial Thromboplast Time 39.8 Seconds (24.1-36.2)
[2018-01-10 17:45] LABS: Allen Test POS; Base Excess -7 mmol/L (-2 to +2); Blood Gas Specimen Type ART; FI02 100; Mode A-C; O2 Delivery Device Vent; PEEP 8; PO2 55 mmHG (75-100); RR 14; SITE L Radial; SO2 85 % (95-99); Time Given 1740; Total Carbon Dioxide 20 mmol/L; Vt 500; pCO2 38.7 mmHg (35-45)
[2018-01-10 17:59] LABS: Valproic Acid (Depakene) Level 45 ug/mL (50-100)
[2018-01-10] MEDS: Enoxaparin 80 MG/0.8 ML Syringe SC (18:09)
--- NOTE | 2018-01-10 18:10 | RAD_ITS ---
STUDY: X-RAY CHEST REASON FOR EXAM: Male, 73 years old. ET tube placement TECHNIQUE: Single frontal view of the chest. COMPARISON: Study done earlier today. FINDINGS: Chronic appearing increased interstitial lung markings. There is a feeding tube/ nasogastric tube noted. The tip is not seen because it extends off the film. There is an endotracheal tube in place. The tip is 45 mm above the michelle. Diffuse bilateral infiltrates. Small bilateral pleural effusions. Right vascular line. The tip is in the superior vena caval - atrial junction. Enlarged heart size. Normal mediastinum and alexia. Normal visualized pulmonary arteries. There is atherosclerotic calcification of the aortic arch with tortuosity. There are diffuse degenerative changes of the visualized thoracic spine. There is degenerative osteoarthritis of the bilateral shoulders. There is no demonstrated abnormality of the visualized soft tissue structures of the upper abdomen. RAD/Chest 1 View (Portable) IMPRESSION: There is a feeding tube/ nasogastric tube noted. The tip is not seen because it extends off the film. There is an endotracheal tube in place. The tip is 45 mm above the michelle. Diffuse bilateral infiltrates. Small bilateral pleural effusions. Right vascular line. The tip is in the superior vena caval - atrial junction. Electronically Signed: Earl Lemus MD at 19:07 EDT , Service support ,
[2018-01-10] MEDS: levETIRAcetam IV 1,000 MG/100 ML BAG 400 MG IV (18:30)
[2018-01-10] MEDS: Propofol 10MG/Ml 1,000 MG/100 ML Bottle 13.914 MG CONT INF ×2 (18:47→21:06)
--- NOTE | 2018-01-10 18:48 | NURSING ---
propofol turned back on at 30mcg/kg/min per physician order for seizure activity.
--- NOTE | 2018-01-10 19:19 | DCINST_ITS ---
- Discharge Diagnoses Current Active Problems: Current Active and Chronic Problems (Last Reviewed 11/09/17 @ 10:34 by Tabitha Johnson) Hyponatremia (Acute) Constipation (Acute) Cardiac arrest (Acute) Reason(s) for Visit for Discharge Instructions: Copnstipation, hyponatremia Discharge Activity: Return to Normal Activity Allergies/Adverse Reactions: Allergies Penicillins [PCN] Allergy (Verified 12/21/17 18:13) Other Sulfa (Sulfonamide Antibiotics) Allergy (Verified 12/21/17 18:13) Other Medications to take at Discharge Ergocalciferol [Vitamin D] 50,000 unit PO Q14D 01/15/16 Fluphenazine HCl [Prolixin] 5 mg PO BID 01/15/16 Multivit-Min/FA/Lycopen/Lutein [Centrum Silver Tablet] 1 ea PO DAILY 01/15/16 Simvastatin [Zocor] 40 mg PO QHS 01/15/16 DiphenhydrAMINE [Benadryl] 25 mg PO BID 09/13/17 Carvedilol [Coreg (Beta Jonatan)] 3.125 mg PO BID #60 tab 09/14/17 Famotidine [Pepcid] 20 mg PO BID #60 tab 09/14/17 Lisinopril [Zestril] 5 mg PO DAILY #30 tab 09/14/17 oxybutynin chloride 5 mg tablet 5 mg PO TID 11/09/17 Divalproex Sodium [Depakote ER] 500 mg PO BID 01/08/18 Lorazepam [Ativan] 0.5 mg PO DAILY 01/08/18 Phenytoin Na [Dilantin] 200 mg PO QHS 01/08/18 Senna/Docusate Sodium [Senokot-S] 2 tablet PO BID PRN #60 tablet 01/10/18 The following prescriptions were given: Senna/Docusate Sodium [Senokot-S] 2 tablet PO BID PRN #60 tablet PRN Reason: Constipation Orders to be completed after discharge: Basic Metabolic Profile (BMP) Location: Laboratory Primary Care Physician: Som Reyes Chi, MD [Primary Care Provider] - Please follow up with your Primary Care Physician in: within 1 week Test Results: Test results from this visit will be discussed in further detail at your follow- up appointment, if applicable. Proposed Discharge Date: 01/10/18
--- NOTE | 2018-01-10 19:19 | PCM.PN.BLA ---
Progress Note Patient has been having persistent seizures, has been giving more than 8 mg of Ativan. Phenytoin level was 4.2. Loaded with phenytoin 1500 mg. Patient persisted to have seizures. Started on Keppra IV 1000 mg x1. Discussed with neurologist on-call, Dr. Fagan, he recommends that patient should be transferred to a facility with continuous EEG monitoring for titration. Does not recommend continued use of Ativan. Discussed with the patient's nephew, updated him, okay with transfer. Patient accepted to [facility]. He will be air flighted to the hospital.
--- NOTE | 2018-01-10 19:26 | PCM.DC.SUM ---
Discharge Date and Diagnosis Date of Admission: 01/08/18 Date of Discharge: 01/10/18 - Primary Discharge Diagnosis Active and Suspected Problems (Last Reviewed 11/09/17 @ 10:34 by Tabitha Johnson) Hyponatremia (Acute) Constipation (Acute) Cardiac arrest (Acute) Status epilepticus Acute hypoxic respiratory failure Aspiration pneumonitis Cardiogenic/distributive shock - Secondary Discharge Diagnosis Chronic Problems (Last Reviewed 11/09/17 @ 10:34 by Tabitha Johnson) HTN (hypertension) (Chronic) Hospital Course and Treatment Imaging Results: 01/10/18 14:51 CTA Chest W/WO Contrast [CT] Stat 01/10/18 14:52 CTA Head W/WO Contrast [CT] Stat CXR for Line Placement [RAD] Stat 01/10/18 18:10 Chest 1 View (Portable) [RAD] Urgent Neurology Critical care Operations: None Procedures: Central line placement, Intubation Summary of Care Provided: The patient is a 73 year old M with past medical history of schizoaffective disorder, seizure disorder who came in with complaints of constipation and abnormal blood work showing hyponatremia. Patient was managed on the regular nursing floor with IV fluids and stool softeners with resolution of his presenting complaints. On the day of discharge, he denied any active complaints. He had 3 bowel movement since admission. Denied any dizziness or palpitations or shortness of breath. No acute events was noted prior overnight. The initial plan was to discontinue Veronica catheter, and discharge patient home after he could void. His jail were reportedly not ready for him to come back. Requested to be have him discharged on Thursday morning. His discharge was cancelled. Patient was apparently in his usual state of health, was seen by nursing, no complaints. He is reported to have come from the bathroom into the room. Nurses at the telemetry station saw sudden onset of bradycardia with HR as low as 36. He was found not responsive but he had a pulse which was weak. His breathing was also agonal. A rapid response was called. Patient subsequently lost the pulse, CODE BLUE was called, CPR started. Patient underwent about CPR for 6-10 minutes. See paper chart for documentation. He was intubated, started on mechanical ventilator, transferred to ICU, central line placed. Patient was noted in the ICU to be having right-sided tonic-clonic seizures, giving a total of 8 mg of IV Ativan. Phenytoin level checked and was 4.2. Given 1500 mg of phenytoin as a loading dose. Seizures which come on but lasts less than a few seconds but is repetitive to have abated. He underwent CT scan of the brain as well as CTA of the chest showed right lung opacity. No acute intracranial abnormality. Discussed with neurology on phone, recommended stopping IV phenytoin, loaded with IV Keppra 1000 mg with planned maintenance Keppra. Discussed with critical care on phone, his oxygen requirement increased to PEEP of 8, FiO2 100%, plateau 25. Recommended increasing PEEP to 10, and lie patient on the affected side. Patient was reported to still having repeated seizures. As discussed with neurology, patient needed continuous EEG in a neuro intensive care. Because of the lack of EEG at night,as well as the lack of overnight critical care physician, it was felt that the patient would be better cared for in a tertiary facility. Discussed with the patient's healthcare power of assistant city attorney who is his sister and also the nephew who the sister has appointed to help with decisions as she is in [place]. She has insurance was accepted everywhere. Tried different hospital transfer lines. He was accepted to [facility]. He was transported there on the air flight Subjective: On the day of discharge, patient was unresponsive, having undergone a code - Physical Exam General: - - Intubated, on mechanical ventilator, hypotensive, pupils are not dilated. HEENT: Atraumatic, Normocephalic, - - Intubated, lots of secretions Oral: Moist Mucosa Neck: Supple Lungs: Diminished Cardiovascular: Regular rate, Regular Rhythm, Normal S1, Normal S2, No murmurs Abdomen: Bowel Sounds Present, Soft, Non Tender, Non-Distended, No Hepato-splenomegaly Extremities: No edema Skin: No rashes, No breakdown Musculoskeletal: No Tenderness to Palpation of Joints or Extremities Lymphatic: No Cervical, Supraclavicular, or Inguinal Adenopathy Neurological: Cranial nerves II-XII grossly intact, Neuro grossly intact Psych/Mental Status: Normal Affect, Appropriate Vital Signs Temp Pulse Resp BP Pulse Ox 97.4 F L 54 L 14 111/54 L 97 01/10/18 18:20 01/10/18 19:00 01/10/18 19:00 01/10/18 19:00 01/10/18 19:00 Oxygen Delivery Method Mechanical Ventilator Weight: 77.3 kg Body Mass Index (BMI) 29.2 Intake and Output for Last 24 Hours 01/08/18 01/09/18 01/10/18 23:59 23:59 23:59 Intake Total 5055 / 5055 2902 / 2902 Output Total 3950 / 3950 1475 / 1475 Balance 1105 / 1105 1427 / 1427 Laboratory Tests Past 24 Hrs 01/10/18 01/10/18 01/10/18 05:20 05:20 13:50 WBC 5.9 RBC 3.17 L Hgb 10.0 L Hct 29.0 L MCV 91.5 MCH 31.5 MCHC 34.5 RDW 12.4 RDW Differential 40.2 Plt Count 154 MPV 11.2 Immature Gran % (Auto) 0.200 Neut % (Auto) 69.2 Lymph % (Auto) 14.1 L Bergen % (Auto) 12.5 H Eos % (Auto) 3.7 Baso % (Auto) 0.3 Absolute Neuts (auto) 4.1 Absolute Lymphs (auto) 0.83 Total Counted Not Reportable PT INR APTT Specimen Type ART Sample Site L Radial pH 7.02 L* Bicarbonate Actual 17.1 L POC Total CO2 19 Base Excess -14 L O2 Saturation 91 L O2 % 100 ABG pCO2 65.8 H ABG pO2 92 Arnaldo Test POS Respiration Rate 14 O2 Delivery Device Vent Minute Volume 7.00 Vent Mode A-C Tidal Volume 500 POC PEEP 5 Blood Gas Notified Whom ICU MD Blood Gas Notified Time 1340 Sodium 135 L Potassium 4.0 Chloride 104 Carbon Dioxide 21.0 Anion Gap 10 BUN 13 Creatinine 0.78 Estim Creat Clear Calc 56.73 Est GFR (MDRD) Af Amer 127 Est GFR (MDRD) Non-Af 105 BUN/Creatinine Ratio 16.7 Glucose 86 Calcium 7.6 L Total Bilirubin AST ALT Alkaline Phosphatase Total Creatine Kinase Troponin I Total Protein Albumin Globulin Albumin/Globulin Ratio Triglycerides Phenytoin Valproic Acid 01/10/18 01/10/18 01/10/18 13:50 13:50 13:50 WBC 5.9 RBC 3.44 L Hgb 10.8 L Hct 32.4 L MCV 94.2 H MCH 31.4 MCHC 33.3 RDW 12.7 RDW Differential 43.8 Plt Count 183 MPV 10.7 Immature Gran % (Auto) 0.300 Neut % (Auto) 66.2 Lymph % (Auto) 20.0 Bergen % (Auto) 10.8 H Eos % (Auto) 2.4 Baso % (Auto) 0.3 Absolute Neuts (auto) 3.9 Absolute Lymphs (auto) 1.17 Total Counted Not Reportable PT INR APTT Specimen Type Sample Site pH Bicarbonate Actual POC Total CO2 Base Excess O2 Saturation O2 % ABG pCO2 ABG pO2 Arnaldo Test Respiration Rate O2 Delivery Device Minute Volume Vent Mode Tidal Volume POC PEEP Blood Gas Notified Whom Blood Gas Notified Time Sodium 136 Potassium 3.9 Chloride 105 Carbon Dioxide 20.0 L Anion Gap 11 BUN 12 Creatinine 1.24 Estim Creat Clear Calc 45.75 Est GFR (MDRD) Af Amer 74 Est GFR (MDRD) Non-Af 61 BUN/Creatinine Ratio 9.7 L Glucose 110 H Calcium 7.1 L Total Bilirubin 0.50 AST 240 H ALT 201 H Alkaline Phosphatase 124 H Total Creatine Kinase 142 Troponin I 0.174 H Total Protein 5.8 L Albumin 2.5 L Globulin 3.3 Albumin/Globulin Ratio 0.8 L Triglycerides 40 Phenytoin Valproic Acid 01/10/18 01/10/18 01/10/18 13:50 13:50 13:50 WBC RBC Hgb Hct MCV MCH MCHC RDW RDW Differential Plt Count MPV Immature Gran % (Auto) Neut % (Auto) Lymph % (Auto) Bergen % (Auto) Eos % (Auto) Baso % (Auto) Absolute Neuts (auto) Absolute Lymphs (auto) Total Counted PT 16.6 H INR 1.3 APTT 39.8 H Specimen Type Sample Site pH Bicarbonate Actual POC Total CO2 Base Excess O2 Saturation O2 % ABG pCO2 ABG pO2 Arnaldo Test Respiration Rate O2 Delivery Device Minute Volume Vent Mode Tidal Volume POC PEEP Blood Gas Notified Whom Blood Gas Notified Time Sodium Potassium Chloride Carbon Dioxide Anion Gap BUN Creatinine Estim Creat Clear Calc Est GFR (MDRD) Af Amer Est GFR (MDRD) Non-Af BUN/Creatinine Ratio Glucose Calcium Total Bilirubin AST ALT Alkaline Phosphatase Total Creatine Kinase Troponin I Total Protein Albumin Globulin Albumin/Globulin Ratio Triglycerides Phenytoin 4.2 L Valproic Acid 45 L 01/10/18 01/10/18 01/10/18 13:55 17:25 17:41 WBC RBC Hgb Hct MCV MCH MCHC RDW RDW Differential Plt Count MPV Immature Gran % (Auto) Neut % (Auto) Lymph % (Auto) Bergen % (Auto) Eos % (Auto) Baso % (Auto) Absolute Neuts (auto) Absolute Lymphs (auto) Total Counted PT INR APTT Specimen Type ART ART Sample Site L Radial L Radial pH 7.05 L* 7.30 L Bicarbonate Actual 16.8 L 19.0 L POC Total CO2 19 20 Base Excess -14 L -7 L O2 Saturation 93 L 85 L O2 % 100 100 ABG pCO2 60.8 H 38.7 ABG pO2 98 55 L Arnaldo Test POS POS Respiration Rate 14 14 O2 Delivery Device Vent Vent Minute Volume 7.00 7.00 Vent Mode A-C A-C Tidal Volume 500 500 POC PEEP 5 8 Blood Gas Notified Whom ICU [facility] Blood Gas Notified Time 1340 1740 Sodium Potassium Chloride Carbon Dioxide Anion Gap BUN Creatinine Estim Creat Clear Calc Est GFR (MDRD) Af Amer Est GFR (MDRD) Non-Af BUN/Creatinine Ratio Glucose Calcium Total Bilirubin AST ALT Alkaline Phosphatase Total Creatine Kinase Troponin I 0.411 H Total Protein Albumin Globulin Albumin/Globulin Ratio Triglycerides Phenytoin Valproic Acid POC Glucose 01/10/18 13:16 POC Glucose 103 Discharge Diet: - - NPO Discharge Activity: Return to Normal Activity Home Medications: Medications to take at Discharge Ergocalciferol [Vitamin D] 50,000 unit PO Q14D 01/15/16 Fluphenazine HCl [Prolixin] 5 mg PO BID 01/15/16 Multivit-Min/FA/Lycopen/Lutein [Centrum Silver Tablet] 1 ea PO DAILY 01/15/16 Simvastatin [Zocor] 40 mg PO QHS 01/15/16 DiphenhydrAMINE [Benadryl] 25 mg PO BID 09/13/17 Carvedilol [Coreg (Beta Jonatan)] 3.125 mg PO BID #60 tab 09/14/17 Famotidine [Pepcid] 20 mg PO BID #60 tab 09/14/17 Lisinopril [Zestril] 5 mg PO DAILY #30 tab 09/14/17 oxybutynin chloride 5 mg tablet 5 mg PO TID 11/09/17 Divalproex Sodium [Depakote ER] 500 mg PO BID 01/08/18 Lorazepam [Ativan] 0.5 mg PO DAILY 01/08/18 Phenytoin Na [Dilantin] 200 mg PO QHS 01/08/18 Senna/Docusate Sodium [Senokot-S] 2 tablet PO BID PRN #60 tablet 01/10/18 Following Prescrptions Were Given to Patient: Senna/Docusate Sodium [Senokot-S] 2 tablet PO BID PRN #60 tablet PRN Reason: Constipation Other Amb Orders: Basic Metabolic Profile (BMP) Location: Laboratory Primary Care Physician: Som Reyes Chi, MD [Primary Care Provider] - Please follow up with your Primary Care Physician in: within 1 week Disposition: Acute care Hospital Minutes spent on discharge:: 90 Patient Condition:: Critical Medical Necessity - Tobacco Use Smoking Status: Never smoker Tobacco Use: Non-smoker Meaningful Use Info Meaningful Use Diagnoses (Choose all that apply): None applicable Code Visit Inpatient E&M: 44315 Disch Hosp
--- NOTE | 2018-01-10 19:50 | NURSING ---
Nurse to nurse report called to T3 at [facility] and given to Lexie MARQUEZ. Will call back when life flight arrives.
--- NOTE | 2018-01-10 20:11 | NURSING ---
Attempting to contact legal guardian for consent to transfer. Only number available is an answering service. Spoke to Vesna Mccann, nurse strand and binder controller. She reports she will attempt to contact the legal guardian, and call back.
--- NOTE | 2018-01-10 20:40 | NURSING ---
notified sister whom is next of kin, Nancy Ochoa at [phone] of patient's need for transfer to [facility] and telephone consent obtained by Jovany Howell RN and Shasha Perkins RN.
--- NOTE | 2018-01-10 21:27 | NURSING ---
Patient discharged to [facility] unit T3 via [facility]. Discharged with restraints in place and on Levophed and propofol. Propofol bottle infusing was scanned on patient's emar at 2106, unable to complete LISANDRA on EMAR. Lexie MARQUEZ from [facility] notified of patient's departure.
== END 2018-01-10 21:20 | disposition short-term general hospital (02) | DRG 640 ==
LOC: ED 19:48 → MS3 20:07 → ICU 01-10 13:41
PROVIDERS: Admitting Provider Student in an Organized Health Care Education/Training Program; Emergency Provider Emergency Medicine; Family Provider Family Medicine Geriatric Medicine; PCP Family Medicine Geriatric Medicine; Referring Provider Student in an Organized Health Care Education/Training Program; Visit Provider Internal Medicine
DX: E87.1 Hypo-osmolality and hyponatremia (principal); I46.9 Cardiac arrest, cause unspecified; J69.0 Pneumonitis due to inhalation of food and vomit; J96.01 Acute respiratory failure with hypoxia; R57.0 Cardiogenic shock; K59.00 Constipation, unspecified; E78.5 Hyperlipidemia, unspecified; K21.9 Gastro-esophageal reflux disease without esophagitis; N32.81 Overactive bladder; F25.9 Schizoaffective disorder, unspecified; G40.901 Epilepsy, unspecified, not intractable, with status epilepticus; I10 Essential (primary) hypertension
CPT/HCPCS: 31500; 31720; 36415; 36600; 70496; 71045; 71275; 73521; 74019; 80048; 80053; 80164; 80185; 81001; 82550; 82803; 82962; 83880; 83930; 83935; 84300; 84478; 84484; 85025; 85610; 85730; 87040; 87086; 92950; 93005; 94002; 99284; J2185; J7030; J7040; Q9967; A4216; C1751